=== PATIENT | male | born 1980 | race Caucasian/White ===

== ENCOUNTER 2023-01-04 15:11 | Inpatient (IN) | payer MEDICAID ==
[~2023-01-04] VITALS: Ht 177.8 cm; Wt 66.2 kg
[2023-01-04] MEDS ORDERED: IOHEXOL-350 100 ML VIAL IV ONE ×2 (15:53→15:54)
[2023-01-04] MEDS ORDERED: CT SWABBABLE VALVE TRANS SET 1 EA INFUS.SET MC ONE (15:54)
[2023-01-04] MEDS ORDERED: IV NS 0.9% 250 ML IV ONE ×2 (15:54)
[2023-01-04 16:06] LABS: HEMATOCRIT 31 % (39-51); HEMOGLOBIN 10.2 g/dL (13.5-17.5); MEAN CORPUSCULAR HEMOGLOBIN 27 PG (26.0-33.0); MEAN CORPUSCULAR HGB CONC 33 g/dl (31.0-36.0); MEAN CORPUSCULAR VOLUME 81 fL (80-96); NEUTROPHILS % (AUTO) 63.9 % (43.0-81.0); PLATELET COUNT (AUTO) 164 K/uL (150-450); RED BLOOD CELL COUNT(AUTO) 3.81 MIL/uL (4.5-6.0); RED CELL DISTRIBUTION WIDTH 16.2 % (11.5-15.0)
[2023-01-04 16:07] LABS: BASOPHILS % (AUTO) 0.4 % (0.0-2.0); EOSINOPHILS % (AUTO) 1.2 % (0.0-6.0); MONOCYTES % (AUTO) 10.5 % (2.0-12.0)
[2023-01-04 16:08] LABS: EOSINOPHILS # (AUTO) 0.1 K/uL (0.0-0.7); LYMPHOCYTES # (AUTO) 1.2 K/uL (0.8-4.8); MONOCYTES # (AUTO) 0.5 K/uL (0.1-1.30); NEUTROPHILS # (AUTO) 3.2 K/uL (1.8-8.9)
[2023-01-04 16:13] LABS: PARTIAL THROMBOPLASTIN TIME 33.3 SEC (24.3-34.3); PROTHROMBIN TIME 10.5 SECS (9.2-11.1)
[2023-01-04 16:42] LABS: ALANINE AMINOTRANSFERASE 26 U/L (12-78); ALBUMIN 3.2 g/dL (3.4-5.0); ALKALINE PHOSPHATASE 102 U/L (46-116); ASPARTATE AMINOTRANSFERASE 22 U/L (15-37); BILIRUBIN,DIRECT 0.1 mg/dL (0.0-0.2); BILIRUBIN,TOTAL 0.4 mg/dL (0.2-1.0); CALCIUM, SERUM 8.6 mg/dL (8.5-10.1); CARBON DIOXIDE 28 mmol/L (21-32); CHLORIDE 100 mmol/L (98-107); CREATININE 1.1 mg/dL (0.6-1.3); GLUCOSE 95 mg/dL (74-106); SODIUM SERUM 136 mmol/L (136-145); TOTAL PROTEIN, SERUM 7.1 g/dL (6.4-8.2); UREA NITROGEN, BLOOD 18 mg/dL (7-18)
[2023-01-04 16:46] LABS: ACETAMINOPHEN <10 ug/ml (10-30); ALCOHOL, BLOOD < 3 mg/dL (0-10); POTASSIUM 2.4 mmol/L (3.5-5.1); SALICYLATE < 2.3 mg/dL (2.8-20.0)
[2023-01-04] MEDS ORDERED: POTASSIUM CHLORIDE 10 MEQ/50 ML PREMIXED IVPB FOR PERIPHERAL LINE IV ONE (18:30)
[2023-01-04] MEDS ORDERED: POTASSIUM CHLORIDE 20 MEQ TAB.PRT.SR PO ONE ×2 (18:30→21:30)
[2023-01-04 19:44] LABS: APPEARANCE,URINE CLEAR (CLEAR); BILIRUBIN,URINE NEGATIVE (NEGATIVE); BLOOD, URINE NEGATIVE Ery/uL (NEGATIVE); COLOR,URINE YELLOW (YELLOW); KETONES,URINE NEGATIVE (NEGATIVE); LEUKOCYTE ESTERASE ,URINE NEGATIVE (NEGATIVE); NITRITE, URINE NEGATIVE (NEGATIVE); PROTEIN,URINE NEGATIVE (NEGATIVE); UGLUCOSE NEGATIVE (NEGATIVE); UROBILINOGEN,URINE 0.2 EU/dL (0.2)
[2023-01-04] MEDS ORDERED: SULFAMETH/TRIMETH 800/160 MG 1 UDTAB TABLET PO ONE (20:00)
[2023-01-04 20:03] LABS: BARBITURATE, URINE NEGATIVE (NEGATIVE); BENZODIAZEPINE, URINE NEGATIVE (NEGATIVE); COCCAINE, URINE NEGATIVE (NEGATIVE); OPIATE, URINE NEGATIVE (NEGATIVE); PHENCYCLIDINE SCREEN,URINE NEGATIVE (NEGATIVE)
[2023-01-04 20:08] LABS: AMPHETAMINE, URINE POSITIVE (NEGATIVE)
[2023-01-04 20:09] LABS: CANNABINOID, URINE POSITIVE (NEGATIVE)
[2023-01-04] MEDS ORDERED: SULFAMETH/TRIMETH 800/160 MG 1 UDTAB TABLET ONE (20:10)
[2023-01-04] MEDS ORDERED: AZIT250T13 PO (20:41)
[2023-01-04] MEDS ORDERED: DEXA4TAB PO (20:42)
[2023-01-04] MEDS ORDERED: FLUC200T8 PO (20:43)
[2023-01-04] MEDS ORDERED: LEVE100S PO (20:44)
[2023-01-04] MEDS ORDERED: LEVE500T20 PO (20:44)
[2023-01-04] MEDS ORDERED: SULF1TAB48 PO (20:46)
[2023-01-04] MEDS ORDERED: ZOLPIDEM TARTRATE 5 MG TABLET PO PRN (21:30)
[2023-01-04] MEDS ORDERED: MAGNESIUM HYDROXIDE 30 ML UDC PO PRN (21:30)
[2023-01-04] MEDS ORDERED: ONDANSETRON HCL/PF 4 MG/2 ML VIAL IVP PRN (21:30)
[2023-01-04] MEDS ORDERED: MAG HYDROX/AL HYDROX/SIMETH 30 ML UDC PO PRN (21:30)
[2023-01-04] MEDS ORDERED: Z GUARD REMEDY 4 OZ OINT TP PRN (21:30)
[2023-01-04 22:30] VITALS: BP 134/102; TEMP 100.6; O2SAT 96
[2023-01-04] MEDS: ACETAMINOPHEN 325 MG TABLET PO PRN (23:11)
[2023-01-05] VITALS: BP 136/102; TEMP 100.2; O2SAT 96
[2023-01-05] MEDS ORDERED: POTASSIUM CHLORIDE 20 MEQ TAB.PRT.SR PO ONE (00:20)
[2023-01-05 04:00] VITALS: BP 112/89; TEMP 99.2; O2SAT 96
[2023-01-05 05:00] VITALS: TEMP 98.5
[2023-01-05 07:08] LABS: BASOPHILS % (AUTO) 0.6 % (0.0-2.0); EOSINOPHILS # (AUTO) 0.1 K/uL (0.0-0.7); EOSINOPHILS % (AUTO) 1.4 % (0.0-6.0); HEMATOCRIT 31 % (39-51); HEMOGLOBIN 10.3 g/dL (13.5-17.5); LYMPHOCYTES # (AUTO) 1.5 K/uL (0.8-4.8); LYMPHOCYTES % (AUTO) 26.6 % (20.0-44.0); MEAN CORPUSCULAR HEMOGLOBIN 27 PG (26.0-33.0); MEAN CORPUSCULAR HGB CONC 33 g/dl (31.0-36.0); MEAN CORPUSCULAR VOLUME 81 fL (80-96); MONOCYTES # (AUTO) 0.7 K/uL (0.1-1.30); MONOCYTES % (AUTO) 13.1 % (2.0-12.0); NEUTROPHILS # (AUTO) 3.3 K/uL (1.8-8.9); NEUTROPHILS % (AUTO) 58.3 % (43.0-81.0); PLATELET COUNT (AUTO) 173 K/uL (150-450); RED BLOOD CELL COUNT(AUTO) 3.85 MIL/uL (4.5-6.0); RED CELL DISTRIBUTION WIDTH 16.2 % (11.5-15.0); WHITE BLOOD COUNT (AUTO) 5.7 K/uL (4.3-11.0)
[2023-01-05] MEDS: PANTOPRAZOLE 40 MG TABLET.DR PO SCH (07:35)
[2023-01-05 07:48] LABS: THYROID STIMULATING HORMONE 0.199 uIU/mL (0.358-3.74)
[2023-01-05 07:52] LABS: CALCIUM, SERUM 8.2 mg/dL (8.5-10.1); CREATININE 0.9 mg/dL (0.6-1.3); POTASSIUM 3.2 mmol/L (3.5-5.1)
[2023-01-05 08:00] VITALS: BP 151/99; TEMP 98.9; O2SAT 94
[2023-01-05 08:05] LABS: MAGNESIUM 1.9 mg/dL (1.8-2.4); PHOSPHORUS 2.6 mg/dL (2.5-4.9)
[2023-01-05] MEDS ORDERED: FLUC100T8 PO (08:38)
[2023-01-05] MEDS ORDERED: FLUC200T8 PO (08:38)
[2023-01-05] MEDS: dexAMETHasone 4 MG TABLET PO SCH ×2 (09:28→16:32)
[2023-01-05] MEDS: LEVETIRACETAM SOL (5 ML) 100 MG/ML UDC PO SCH ×2 (09:28→16:31)
[2023-01-05] MEDS: SULFAMETH/TRIMETH 800/160 MG 1 UDTAB TABLET PO SCH ×2 (09:28→21:38)
[2023-01-05] MEDS: ACETAMINOPHEN 325 MG TABLET PO PRN (11:43)
[2023-01-05] MEDS: POTASSIUM CHLORIDE 20 MEQ TAB.PRT.SR PO SCH ×2 (11:44→12:54)
[2023-01-05] MEDS: FLUCONAZOLE (100 MG) 100 MG TABLET PO SCH (11:44)
[2023-01-05] MEDS ORDERED: LORAZEPAM INJ 2 MG/ML VIAL IV ONE (13:00)
[2023-01-05 16:00] VITALS: BP 148/94; TEMP 98.8; O2SAT 99
[2023-01-05 20:00] VITALS: BP 154/111; TEMP 97.7; O2SAT 98
[2023-01-05] MEDS: VANCOMYCIN 1 GM in IV D5W 250 ML IV SCH (20:22)
[2023-01-05] MEDS: CEFEPIME 2 GM in IV D5W 100 ML IV SCH (21:38)
[2023-01-05] MEDS: LORAZEPAM INJ 2 MG/ML VIAL IM/IV PRN (23:22)
[2023-01-05] MEDS: METRONIDAZOLE 500MG/ NS 100ML 500 MG in PREMIX 1 EA IV SCH (23:33)
[2023-01-06] VITALS: BP 178/104; TEMP 99.1; O2SAT 100
[2023-01-06] MEDS: hydrALAZINE HCL IV 20 MG VIAL IV PRN (01:02)
[2023-01-06 04:00] VITALS: BP 152/109; TEMP 98.2; O2SAT 99
[2023-01-06] MEDS: VANCOMYCIN 1 GM in IV D5W 250 ML IV SCH ×3 (04:25→20:37)
[2023-01-06] MEDS: CEFEPIME 2 GM in IV D5W 100 ML IV SCH ×3 (05:16→21:28)
[2023-01-06] MEDS: METRONIDAZOLE 500MG/ NS 100ML 500 MG in PREMIX 1 EA IV SCH ×4 (06:22→23:56)
[2023-01-06] MEDS: PANTOPRAZOLE 40 MG TABLET.DR PO SCH (07:37)
[2023-01-06 07:46] LABS: CALCIUM, SERUM 9.1 mg/dL (8.5-10.1); CREATININE 0.8 mg/dL (0.6-1.3); POTASSIUM 3.7 mmol/L (3.5-5.1)
[2023-01-06] MEDS ORDERED: GADOTERATE MEGLUMINE 5 MMOL/10 ML VIAL IV ONE (08:29)
[2023-01-06 09:11] LABS: FERRITIN 277 ng/mL (8-388)
[2023-01-06] MEDS: FLUCONAZOLE (100 MG) 100 MG TABLET PO SCH (09:19)
[2023-01-06] MEDS: LEVETIRACETAM SOL (5 ML) 100 MG/ML UDC PO SCH ×2 (09:19→17:11)
[2023-01-06] MEDS: dexAMETHasone 4 MG TABLET PO SCH ×2 (09:20→17:11)
[2023-01-06] MEDS: SULFAMETH/TRIMETH 800/160 MG 1 UDTAB TABLET PO SCH (09:20)
[2023-01-06] MEDS ORDERED: LEVETIRACETAM (250 MG) 250 MG TABLET PO SCH (17:00)
[2023-01-06] MEDS: PROSOURCE / PROSTAT (PYXIS) 30 ML UDC PO SCH (17:11)
[2023-01-06 20:57] VITALS: BP 149/103; TEMP 98.9; O2SAT 98
[2023-01-06] MEDS: SULFAMETHOXAZOLE/TRIMETHOPRIM 20 ML in IV D5W 500 ML IV SCH (21:00)
[2023-01-06 22:08] LABS: HIV-1 p24 ANTIGEN NON REACTIVE (NONREACTIVE); HIV-1/2 ANTIBODY REACTIVE (NONREACTIVE)
[2023-01-06] MEDS ORDERED: SULFAMETHOXAZOLE/TRIMETHOPRIM 10 ML VIAL IV ONE (23:48)
[2023-01-07 00:34] VITALS: BP 125/87; TEMP 98; O2SAT 96
[2023-01-07] MEDS: SULFAMETHOXAZOLE/TRIMETHOPRIM 20 ML in IV D5W 500 ML IV SCH ×3 (00:38→20:52)
[2023-01-07] MEDS: VANCOMYCIN 1 GM in IV D5W 250 ML IV SCH (03:53)
[2023-01-07 04:31] VITALS: BP 141/93; TEMP 98; O2SAT 96
[2023-01-07 05:09] LABS: *BASOS 0 % (Not Estab.); *EOS 0 % (Not Estab.); *HCT 37.8 % (37.5-51.0); *HGB 12.2 g/dL (13.0-17.7); *IMMATURE GRANULOCYTES 0 % (Not Estab.); *LYMPHOCYTES 25 % (Not Estab.); *LYMPHS, ABSOLUTE 1.9 x10E3/uL (0.7-3.1); *MCH 26.6 pg (26.6-33.0); *MCHC 32.3 g/dL (31.5-35.7); *MCV 83 fL (79-97); *MONOCYTES 8 % (Not Estab.); *MONOS, ABSOLUTE 0.6 x10E3/uL (0.1-0.9); *NEUTROPHILS 67 % (Not Estab.); *NEUTROPHILS, ABSOLUTE 5.1 x10E3/uL (1.4-7.0); *PLT 243 x10E3/uL (150-450); *RBC 4.58 x10E6/uL (4.14-5.80); *RDW 15.3 % (11.6-15.4); *WBC 7.7 x10E3/uL (3.4-10.8)
[2023-01-07] MEDS: CEFEPIME 2 GM in IV D5W 100 ML IV SCH ×3 (05:19→21:46)
[2023-01-07 05:57] LABS: CALCIUM, SERUM 9.4 mg/dL (8.5-10.1); POTASSIUM 4.5 mmol/L (3.5-5.1)
[2023-01-07] MEDS: METRONIDAZOLE 500MG/ NS 100ML 500 MG in PREMIX 1 EA IV SCH ×3 (06:03→17:05)
[2023-01-07 07:30] VITALS: BP 142/98; TEMP 97.8; O2SAT 98
[2023-01-07] MEDS: PANTOPRAZOLE 40 MG TABLET.DR PO SCH (07:48)
[2023-01-07 08:07] LABS: CMV, IgG >10.00 U/mL (0.00-0.59)
[2023-01-07] MEDS: ASCORBIC ACID 500 MG TABLET PO SCH (09:02)
[2023-01-07] MEDS: MULTIVIT W/MINERALS 1 TAB TABLET PO SCH (09:02)
[2023-01-07] MEDS: ZINC SULFATE 220 MG CAPSULE PO SCH (09:02)
[2023-01-07] MEDS: dexAMETHasone 4 MG TABLET PO SCH ×2 (09:02→17:03)
[2023-01-07] MEDS: PROSOURCE / PROSTAT (PYXIS) 30 ML UDC PO SCH ×2 (09:03→17:03)
[2023-01-07] MEDS: LEVETIRACETAM (250 MG) 250 MG TABLET PO SCH ×2 (09:03→17:03)
[2023-01-07 09:07] LABS: *EBV AB VCA, IgM <36.0 U/mL (0.0-35.9)
[2023-01-07] MEDS: FLUCONAZOLE (100 MG) 100 MG TABLET PO SCH (09:32)
[2023-01-07 10:07] LABS: *% CD 4 POS. LYMPH 0.5 % (30.8-58.5); *% CD 8 POS. LYMPH 89.5 % (12.0-35.5); *ABSOLUTE CD 4 HELPER 10 /uL (359-1519); *ABSOLUTE CD 8 SUPPRESSOR 1701 /uL (109-897); *CD4/CD8 RATIO 0.01 (0.92-3.72)
[2023-01-07 14:07] LABS: HEPATITIS B CORE AB, TOTAL Negative (Negative); HEPATITIS B SURFACE AB Non Reactive (.)
[2023-01-07 15:00] VITALS: BP 149/97; TEMP 97.5; O2SAT 97
[2023-01-07 20:00] VITALS: BP 140/90; TEMP 98.4; O2SAT 98
[2023-01-07 21:06] LABS: *HIV-1 log10 RNA 4.911 (.)
[2023-01-08 00:46] VITALS: BP 141/102; TEMP 98; O2SAT 96
[2023-01-08] MEDS: METRONIDAZOLE 500MG/ NS 100ML 500 MG in PREMIX 1 EA IV SCH ×2 (01:24→06:26)
[2023-01-08 04:17] VITALS: BP 144/98; TEMP 97.8; O2SAT 96
[2023-01-08] MEDS: CEFEPIME 2 GM in IV D5W 100 ML IV SCH ×3 (04:27→21:34)
[2023-01-08 06:09] LABS: CALCIUM, SERUM 8.8 mg/dL (8.5-10.1); POTASSIUM 3.7 mmol/L (3.5-5.1)
[2023-01-08 06:16] LABS: MAGNESIUM 2.2 mg/dL (1.8-2.4); PHOSPHORUS 2.3 mg/dL (2.5-4.9)
[2023-01-08 06:27] LABS: THYROID STIMULATING HORMONE 0.154 uIU/mL (0.358-3.74); URIC ACID 3.7 mg/dL (2.6-7.2)
[2023-01-08] MEDS ORDERED: K PHOS NEUTRAL 250 MG TABLET PO ONE ×2 (07:30→17:30)
[2023-01-08 08:00] VITALS: BP 148/110; TEMP 97.9; O2SAT 98
[2023-01-08] MEDS: FLUCONAZOLE (100 MG) 100 MG TABLET PO SCH (08:32)
[2023-01-08] MEDS: dexAMETHasone 4 MG TABLET PO SCH ×2 (08:33→17:19)
[2023-01-08] MEDS: ZINC SULFATE 220 MG CAPSULE PO SCH (08:33)
[2023-01-08] MEDS: ASCORBIC ACID 500 MG TABLET PO SCH (08:33)
[2023-01-08] MEDS: MULTIVIT W/MINERALS 1 TAB TABLET PO SCH (08:33)
[2023-01-08] MEDS: PROSOURCE / PROSTAT (PYXIS) 30 ML UDC PO SCH ×2 (08:34→17:19)
[2023-01-08] MEDS: PANTOPRAZOLE 40 MG TABLET.DR PO SCH (08:34)
[2023-01-08] MEDS: LEVETIRACETAM (250 MG) 250 MG TABLET PO SCH ×2 (08:34→17:19)
[2023-01-08] MEDS: SULFAMETHOXAZOLE/TRIMETHOPRIM 20 ML in IV D5W 500 ML IV SCH ×2 (10:14→21:48)
[2023-01-08] MEDS: METRONIDAZOLE 500 MG TABLET PO SCH ×2 (12:46→17:19)
[2023-01-08 16:00] VITALS: BP 145/97; TEMP 97.9; O2SAT 98
[2023-01-08 19:00] VITALS: BP 142/91; TEMP 98.9; O2SAT 98
[2023-01-08 20:00] VITALS: BP 145/97; TEMP 97.6
[2023-01-09] MEDS: METRONIDAZOLE 500 MG TABLET PO SCH ×5 (00:44→23:43)
[2023-01-09 04:00] VITALS: BP 158/105; TEMP 98.7; O2SAT 98
[2023-01-09] MEDS: CEFEPIME 2 GM in IV D5W 100 ML IV SCH ×3 (05:38→20:41)
[2023-01-09 05:52] LABS: BASOPHILS % (AUTO) 0.1 % (0.0-2.0); HEMATOCRIT 34 % (39-51); LYMPHOCYTES # (AUTO) 1.2 K/uL (0.8-4.8); LYMPHOCYTES % (AUTO) 11.9 % (20.0-44.0); MEAN CORPUSCULAR HEMOGLOBIN 27 PG (26.0-33.0); MEAN CORPUSCULAR HGB CONC 32 g/dl (31.0-36.0); MEAN CORPUSCULAR VOLUME 82 fL (80-96); MONOCYTES # (AUTO) 0.2 K/uL (0.1-1.30); MONOCYTES % (AUTO) 2.4 % (2.0-12.0); NEUTROPHILS # (AUTO) 8.5 K/uL (1.8-8.9); NEUTROPHILS % (AUTO) 85.6 % (43.0-81.0); PLATELET COUNT (AUTO) 244 K/uL (150-450); RED BLOOD CELL COUNT(AUTO) 4.15 MIL/uL (4.5-6.0); RED CELL DISTRIBUTION WIDTH 16.1 % (11.5-15.0); WHITE BLOOD COUNT (AUTO) 9.9 K/uL (4.3-11.0)
[2023-01-09 06:35] VITALS: BP 165/115
[2023-01-09 06:44] LABS: CREATININE 0.9 mg/dL (0.6-1.3); POTASSIUM 3.9 mmol/L (3.5-5.1)
[2023-01-09] MEDS: hydrALAZINE HCL IV 20 MG VIAL IV PRN (06:47)
[2023-01-09 08:00] VITALS: BP 163/100; TEMP 98.1; O2SAT 98
[2023-01-09] MEDS: PANTOPRAZOLE 40 MG TABLET.DR PO SCH (08:31)
[2023-01-09] MEDS: FLUCONAZOLE (100 MG) 100 MG TABLET PO SCH (08:35)
[2023-01-09] MEDS: LEVETIRACETAM (250 MG) 250 MG TABLET PO SCH ×2 (08:36→16:58)
[2023-01-09] MEDS: ZINC SULFATE 220 MG CAPSULE PO SCH (08:36)
[2023-01-09] MEDS: MULTIVIT W/MINERALS 1 TAB TABLET PO SCH (08:37)
[2023-01-09] MEDS: ASCORBIC ACID 500 MG TABLET PO SCH (08:38)
[2023-01-09] MEDS: dexAMETHasone 4 MG TABLET PO SCH ×2 (08:38→16:58)
[2023-01-09] MEDS: PROSOURCE / PROSTAT (PYXIS) 30 ML UDC PO SCH ×2 (08:41→16:58)
[2023-01-09] MEDS: SULFAMETHOXAZOLE/TRIMETHOPRIM 20 ML in IV D5W 500 ML IV SCH ×2 (08:47→21:31)
[2023-01-09 12:00] VITALS: BP 152/98; TEMP 98.3; O2SAT 98
[2023-01-09] MEDS ORDERED: IOHEXOL-300 100 ML VIAL IV ONE (13:40)
[2023-01-09] MEDS ORDERED: CT SWABBABLE VALVE TRANS SET 1 EA INFUS.SET MC ONE (13:41)
[2023-01-09] MEDS ORDERED: IV NS 0.9% 250 ML IV ONE (13:41)
[2023-01-09] MEDS ORDERED: MAGNESIUM HYDROXIDE 30 ML UDC PO PRN (18:00)
[2023-01-09 20:00] VITALS: BP 150/108; TEMP 97.4; O2SAT 97
[2023-01-10] MEDS: CEFEPIME 2 GM in IV D5W 100 ML IV SCH ×3 (04:06→20:31)
[2023-01-10] MEDS: METRONIDAZOLE 500 MG TABLET PO SCH ×3 (05:19→17:28)
[2023-01-10 06:05] LABS: CALCIUM, SERUM 8.7 mg/dL (8.5-10.1); CREATININE 0.9 mg/dL (0.6-1.3); POTASSIUM 4.1 mmol/L (3.5-5.1)
[2023-01-10 07:00] VITALS: BP 151/105; TEMP 97.6; O2SAT 100
[2023-01-10] MEDS: PANTOPRAZOLE 40 MG TABLET.DR PO SCH (07:59)
[2023-01-10] MEDS: POLYETHYLENE GLYCOL 3350 17 GM POWD.PACK PO SCH (08:54)
[2023-01-10] MEDS: dexAMETHasone 4 MG TABLET PO SCH ×2 (08:55→17:15)
[2023-01-10] MEDS: ZINC SULFATE 220 MG CAPSULE PO SCH (08:55)
[2023-01-10] MEDS: ASCORBIC ACID 500 MG TABLET PO SCH (08:55)
[2023-01-10] MEDS: FLUCONAZOLE (100 MG) 100 MG TABLET PO SCH (08:55)
[2023-01-10] MEDS: PROSOURCE / PROSTAT (PYXIS) 30 ML UDC PO SCH ×2 (08:56→17:17)
[2023-01-10] MEDS: SULFAMETHOXAZOLE/TRIMETHOPRIM 20 ML in IV D5W 500 ML IV SCH ×2 (08:56→21:17)
[2023-01-10] MEDS: LEVETIRACETAM (250 MG) 250 MG TABLET PO SCH ×2 (08:56→17:15)
[2023-01-10] MEDS: MULTIVIT W/MINERALS 1 TAB TABLET PO SCH (08:56)
[2023-01-10 16:04] VITALS: BP 149/103; TEMP 97.8; O2SAT 98
[2023-01-10 18:15] LABS: CSF APPEARANCE CLEAR (CLEAR); CSF COLOR COLORLESS (COLORLESS); CSF GLUCOSE 71 mg/dL (40-70); CSF PROTEIN 72.21 mg/dL (15-45); CSF VOLUME 6.7 mL; CSF WHITE BLOOD CELL COUNT 15 /cumm (0-5)
[2023-01-10 18:31] LABS: CSF WHITE BLOOD CELL COUNT 12 /cumm (0-5)
[2023-01-10 20:00] VITALS: BP 158/94; TEMP 97.5; O2SAT 100
[2023-01-11] MEDS: METRONIDAZOLE 500 MG TABLET PO SCH ×4 (00:09→18:08)
[2023-01-11] MEDS: CEFEPIME 2 GM in IV D5W 100 ML IV SCH ×2 (04:12→17:31)
[2023-01-11 08:00] VITALS: BP 150/91; TEMP 98.6; O2SAT 98
[2023-01-11] MEDS: POLYETHYLENE GLYCOL 3350 17 GM POWD.PACK PO SCH (09:00)
[2023-01-11 09:15] LABS: BASOPHILS % (AUTO) 0.3 % (0.0-2.0); HEMATOCRIT 35 % (39-51); HEMOGLOBIN 11.2 g/dL (13.5-17.5); LYMPHOCYTES # (AUTO) 1.5 K/uL (0.8-4.8); LYMPHOCYTES % (AUTO) 12.5 % (20.0-44.0); MEAN CORPUSCULAR HEMOGLOBIN 26 PG (26.0-33.0); MEAN CORPUSCULAR HGB CONC 32 g/dl (31.0-36.0); MEAN CORPUSCULAR VOLUME 82 fL (80-96); MONOCYTES # (AUTO) 0.4 K/uL (0.1-1.30); MONOCYTES % (AUTO) 3.4 % (2.0-12.0); NEUTROPHILS # (AUTO) 10.2 K/uL (1.8-8.9); NEUTROPHILS % (AUTO) 83.8 % (43.0-81.0); PLATELET COUNT (AUTO) 350 K/uL (150-450); RED BLOOD CELL COUNT(AUTO) 4.26 MIL/uL (4.5-6.0); RED CELL DISTRIBUTION WIDTH 16.4 % (11.5-15.0); WHITE BLOOD COUNT (AUTO) 12.2 K/uL (4.3-11.0)
[2023-01-11 09:57] LABS: BILIRUBIN,DIRECT 0.1 mg/dL (0.0-0.2); BILIRUBIN,TOTAL 0.1 mg/dL (0.2-1.0); CALCIUM, SERUM 8.7 mg/dL (8.5-10.1); TOTAL PROTEIN, SERUM 6.7 g/dL (6.4-8.2)
[2023-01-11 09:58] LABS: BAND % (MANUAL) 2 % (0.0-5.0); LYMPHOCYTES % (MANUAL) 11 % (16-48); METAMYELOCYTES % 1 % (0-0); MONOCYTES % (MANUAL) 2 % (0-11.0); MYELOCYTES % 4 % (0-0); NEUTROPHILS % (MANUAL) 80 (42-76); PLATELET ESTIMATE ADEQUATE
[2023-01-11] MEDS ORDERED: D5W IV SCH (10:00)
[2023-01-11] MEDS ORDERED: AMPHOTERICIN B LIPID COMPLEX IV SCH (10:00)
[2023-01-11] MEDS: LEVETIRACETAM (250 MG) 250 MG TABLET PO SCH ×2 (10:26→18:09)
[2023-01-11] MEDS: dexAMETHasone 4 MG TABLET PO SCH ×2 (10:26→18:09)
[2023-01-11] MEDS: ASCORBIC ACID 500 MG TABLET PO SCH (10:26)
[2023-01-11] MEDS: MULTIVIT W/MINERALS 1 TAB TABLET PO SCH (10:26)
[2023-01-11] MEDS: PANTOPRAZOLE 40 MG TABLET.DR PO SCH (10:27)
[2023-01-11] MEDS: ZINC SULFATE 220 MG CAPSULE PO SCH (10:28)
[2023-01-11] MEDS: PROSOURCE / PROSTAT (PYXIS) 30 ML UDC PO SCH ×2 (10:31→18:08)
[2023-01-11] MEDS: SULFAMETHOXAZOLE/TRIMETHOPRIM 20 ML in IV D5W 500 ML IV SCH ×2 (10:44→21:17)
[2023-01-11] MEDS: FLUCYTOSINE 250 MG CAPSULE PO SCH ×3 (12:29→20:30)
[2023-01-11] MEDS: ACETAMINOPHEN 325 MG TABLET PO PRN (14:16)
[2023-01-11 16:00] VITALS: BP 146/109; TEMP 98.4; O2SAT 98
[2023-01-11 17:06] LABS: CMV, IgM <30.0 AU/mL (0.0-29.9); RAPID PLASMA REAGIN QUAL. Non Reactive (Non Reactive)
[2023-01-11 21:19] VITALS: BP 154/118; TEMP 97.9; O2SAT 97
[2023-01-11 22:17] VITALS: BP 160/107
[2023-01-12] MEDS: METRONIDAZOLE 500 MG TABLET PO SCH ×5 (00:04→23:13)
[2023-01-12] MEDS: CEFEPIME 2 GM in IV D5W 100 ML IV SCH ×3 (01:15→16:18)
[2023-01-12 07:13] LABS: BASOPHILS % (AUTO) 0.1 % (0.0-2.0); HEMATOCRIT 35 % (39-51); HEMOGLOBIN 11.6 g/dL (13.5-17.5); LYMPHOCYTES # (AUTO) 1.7 K/uL (0.8-4.8); LYMPHOCYTES % (AUTO) 11.1 % (20.0-44.0); MEAN CORPUSCULAR HEMOGLOBIN 27 PG (26.0-33.0); MEAN CORPUSCULAR HGB CONC 33 g/dl (31.0-36.0); MEAN CORPUSCULAR VOLUME 81 fL (80-96); MONOCYTES # (AUTO) 0.7 K/uL (0.1-1.30); MONOCYTES % (AUTO) 4.8 % (2.0-12.0); NEUTROPHILS # (AUTO) 13.1 K/uL (1.8-8.9); PLATELET COUNT (AUTO) 391 K/uL (150-450); RED BLOOD CELL COUNT(AUTO) 4.34 MIL/uL (4.5-6.0); RED CELL DISTRIBUTION WIDTH 16.7 % (11.5-15.0); WHITE BLOOD COUNT (AUTO) 15.5 K/uL (4.3-11.0)
[2023-01-12 07:24] LABS: CALCIUM, SERUM 8.7 mg/dL (8.5-10.1); CREATININE 0.9 mg/dL (0.6-1.3); POTASSIUM 4.4 mmol/L (3.5-5.1)
[2023-01-12 08:00] VITALS: BP 152/114; TEMP 96.6; O2SAT 98
[2023-01-12] MEDS: PANTOPRAZOLE 40 MG TABLET.DR PO SCH (08:21)
[2023-01-12] MEDS: ZINC SULFATE 220 MG CAPSULE PO SCH (08:35)
[2023-01-12] MEDS: MULTIVIT W/MINERALS 1 TAB TABLET PO SCH (08:35)
[2023-01-12] MEDS: dexAMETHasone 4 MG TABLET PO SCH ×2 (08:35→16:18)
[2023-01-12] MEDS: LEVETIRACETAM (250 MG) 250 MG TABLET PO SCH ×2 (08:35→16:18)
[2023-01-12] MEDS: ASCORBIC ACID 500 MG TABLET PO SCH (08:36)
[2023-01-12] MEDS: FLUCYTOSINE 250 MG CAPSULE PO SCH ×4 (08:43→21:15)
[2023-01-12] MEDS: hydrALAZINE HCL IV 20 MG VIAL IV PRN (09:01)
[2023-01-12] MEDS: PROSOURCE / PROSTAT (PYXIS) 30 ML UDC PO SCH ×2 (09:02→16:19)
[2023-01-12] MEDS: POLYETHYLENE GLYCOL 3350 17 GM POWD.PACK PO SCH (09:02)
[2023-01-12] MEDS: SULFAMETHOXAZOLE/TRIMETHOPRIM 20 ML in IV D5W 500 ML IV SCH ×2 (09:10→23:11)
[2023-01-12] MEDS ORDERED: D5W IV SCH (11:00)
[2023-01-12] MEDS ORDERED: AMPHOTERICIN B LIPID COMPLEX IV SCH (11:00)
[2023-01-12 16:00] VITALS: BP 153/109; TEMP 98.1; O2SAT 98
[2023-01-12 20:00] VITALS: BP 145/71; TEMP 99; O2SAT 99
[2023-01-12] MEDS ORDERED: D5W IV ONE (21:00)
[2023-01-12] MEDS ORDERED: AMPHOTERICIN B LIPID COMPLEX IV ONE (21:00)
[2023-01-13] MEDS: CEFEPIME 2 GM in IV D5W 100 ML IV SCH ×3 (01:37→16:49)
[2023-01-13] MEDS: METRONIDAZOLE 500 MG TABLET PO SCH ×3 (06:42→18:24)
[2023-01-13] MEDS: PANTOPRAZOLE 40 MG TABLET.DR PO SCH (06:42)
[2023-01-13] MEDS: ACETAMINOPHEN 325 MG TABLET PO PRN ×2 (07:56→21:31)
[2023-01-13 08:00] VITALS: BP 122/90; TEMP 98.6; O2SAT 94
[2023-01-13 08:06] LABS: BASOPHILS % (AUTO) 0.1 % (0.0-2.0); HEMATOCRIT 37 % (39-51); HEMOGLOBIN 11.7 g/dL (13.5-17.5); LYMPHOCYTES % (AUTO) 11.5 % (20.0-44.0); MEAN CORPUSCULAR HEMOGLOBIN 26 PG (26.0-33.0); MEAN CORPUSCULAR HGB CONC 32 g/dl (31.0-36.0); MEAN CORPUSCULAR VOLUME 82 fL (80-96); MONOCYTES # (AUTO) 0.9 K/uL (0.1-1.30); MONOCYTES % (AUTO) 5.1 % (2.0-12.0); NEUTROPHILS # (AUTO) 14.7 K/uL (1.8-8.9); NEUTROPHILS % (AUTO) 83.3 % (43.0-81.0); PLATELET COUNT (AUTO) 413 K/uL (150-450); RED BLOOD CELL COUNT(AUTO) 4.47 MIL/uL (4.5-6.0); WHITE BLOOD COUNT (AUTO) 17.6 K/uL (4.3-11.0)
[2023-01-13 08:21] LABS: CALCIUM, SERUM 8.5 mg/dL (8.5-10.1); MAGNESIUM 2.1 mg/dL (1.8-2.4); PHOSPHORUS 3.4 mg/dL (2.5-4.9); POTASSIUM 4.4 mmol/L (3.5-5.1)
[2023-01-13] MEDS: LEVETIRACETAM (250 MG) 250 MG TABLET PO SCH ×2 (09:30→16:46)
[2023-01-13] MEDS: dexAMETHasone 4 MG TABLET PO SCH ×2 (09:30→16:47)
[2023-01-13] MEDS: MULTIVIT W/MINERALS 1 TAB TABLET PO SCH (09:30)
[2023-01-13] MEDS: ZINC SULFATE 220 MG CAPSULE PO SCH (09:30)
[2023-01-13] MEDS: ASCORBIC ACID 500 MG TABLET PO SCH (09:30)
[2023-01-13] MEDS: SULFAMETHOXAZOLE/TRIMETHOPRIM 20 ML in IV D5W 500 ML IV SCH ×2 (09:32→21:31)
[2023-01-13] MEDS: PROSOURCE / PROSTAT (PYXIS) 30 ML UDC PO SCH ×2 (09:32→16:46)
[2023-01-13] MEDS: POLYETHYLENE GLYCOL 3350 17 GM POWD.PACK PO SCH (09:32)
[2023-01-13] MEDS: FLUCYTOSINE 250 MG CAPSULE PO SCH ×4 (09:42→23:00)
[2023-01-13] MEDS: hydrALAZINE HCL IV 20 MG VIAL IV PRN (09:42)
[2023-01-13] MEDS ORDERED: D5W IV SCH ×5 (12:00)
[2023-01-13] MEDS ORDERED: AMPHOTERICIN B LIPID COMPLEX IV SCH ×5 (12:00)
[2023-01-13 14:07] LABS: *HCV QUANTITATION HCV Not Detected IU/mL (.)
[2023-01-13 20:00] VITALS: BP 154/100; TEMP 98.1; O2SAT 98
[2023-01-14] MEDS: METRONIDAZOLE 500 MG TABLET PO SCH ×2 (00:53→05:58)
[2023-01-14] MEDS: CEFEPIME 2 GM in IV D5W 100 ML IV SCH ×2 (01:20→08:54)
[2023-01-14 04:23] LABS: APPEARANCE,URINE CLEAR (CLEAR); BILIRUBIN,URINE NEGATIVE (NEGATIVE); BLOOD, URINE NEGATIVE Ery/uL (NEGATIVE); COLOR,URINE YELLOW (YELLOW); KETONES,URINE NEGATIVE (NEGATIVE); LEUKOCYTE ESTERASE ,URINE NEGATIVE (NEGATIVE); NITRITE, URINE NEGATIVE (NEGATIVE); PROTEIN,URINE TRACE mg/dl (NEGATIVE); UGLUCOSE NEGATIVE (NEGATIVE); UROBILINOGEN,URINE 0.2 EU/dL (0.2)
[2023-01-14 05:54] LABS: BASOPHILS % (AUTO) 0.1 % (0.0-2.0); HEMATOCRIT 35 % (39-51); HEMOGLOBIN 11.5 g/dL (13.5-17.5); LYMPHOCYTES # (AUTO) 2.5 K/uL (0.8-4.8); LYMPHOCYTES % (AUTO) 12.7 % (20.0-44.0); MEAN CORPUSCULAR HEMOGLOBIN 27 PG (26.0-33.0); MEAN CORPUSCULAR HGB CONC 33 g/dl (31.0-36.0); MEAN CORPUSCULAR VOLUME 82 fL (80-96); MONOCYTES # (AUTO) 1.5 K/uL (0.1-1.30); MONOCYTES % (AUTO) 7.6 % (2.0-12.0); NEUTROPHILS # (AUTO) 15.4 K/uL (1.8-8.9); NEUTROPHILS % (AUTO) 79.6 % (43.0-81.0); PLATELET COUNT (AUTO) 415 K/uL (150-450); RED BLOOD CELL COUNT(AUTO) 4.25 MIL/uL (4.5-6.0); RED CELL DISTRIBUTION WIDTH 17.2 % (11.5-15.0); WHITE BLOOD COUNT (AUTO) 19.4 K/uL (4.3-11.0)
[2023-01-14 06:05] LABS: CALCIUM, SERUM 8.3 mg/dL (8.5-10.1); CREATININE 0.8 mg/dL (0.6-1.3); MAGNESIUM 2.1 mg/dL (1.8-2.4); PHOSPHORUS 3.6 mg/dL (2.5-4.9); POTASSIUM 3.9 mmol/L (3.5-5.1)
[2023-01-14] MEDS: PANTOPRAZOLE 40 MG TABLET.DR PO SCH (07:44)
[2023-01-14 08:25] VITALS: BP 161/116; TEMP 97.5; O2SAT 99
[2023-01-14] MEDS: dexAMETHasone 4 MG TABLET PO SCH (08:53)
[2023-01-14] MEDS: LEVETIRACETAM (250 MG) 250 MG TABLET PO SCH ×2 (08:54→16:12)
[2023-01-14] MEDS: MULTIVIT W/MINERALS 1 TAB TABLET PO SCH (08:54)
[2023-01-14] MEDS: FLUCYTOSINE 250 MG CAPSULE PO SCH ×4 (08:54→21:11)
[2023-01-14] MEDS: ZINC SULFATE 220 MG CAPSULE PO SCH (08:54)
[2023-01-14] MEDS: ASCORBIC ACID 500 MG TABLET PO SCH (08:54)
[2023-01-14] MEDS: POLYETHYLENE GLYCOL 3350 17 GM POWD.PACK PO SCH (08:54)
[2023-01-14] MEDS: PROSOURCE / PROSTAT (PYXIS) 30 ML UDC PO SCH ×2 (08:54→16:12)
[2023-01-14] MEDS: TRAMADOL HCL 50 MG TABLET PO PRN (08:55)
[2023-01-14] MEDS ORDERED: MEROPENEM 1 G in IV NS 0.9% 100 ML IV SCH ×12 (09:30→13:30)
[2023-01-14] MEDS ORDERED: MEROPENEM 2 G in IV NS 0.9% 100 ML IV SCH (09:30)
[2023-01-14] MEDS: SULFAMETHOXAZOLE/TRIMETHOPRIM 20 ML in IV D5W 500 ML IV SCH ×2 (09:37→22:30)
[2023-01-14] MEDS ORDERED: MEROPENEM 1 G in IV NS 0.9% 100 ML IV ONE ×2 (10:30→11:00)
[2023-01-14] MEDS ORDERED: CT SWABBABLE VALVE TRANS SET 1 EA INFUS.SET MC ONE (12:46)
[2023-01-14] MEDS ORDERED: IOHEXOL-350 100 ML VIAL IV ONE (12:46)
[2023-01-14] MEDS ORDERED: IV NS 0.9% 250 ML IV ONE (12:47)
[2023-01-14] MEDS: MEROPENEM 1 G in IV NS 0.9% 100 ML IV SCH ×4 (13:00→21:42)
[2023-01-14] MEDS: dexaMETHasone SOD PHOSPHATE 10 MG/ML VIAL IV SCH ×2 (13:48→17:09)
[2023-01-14] MEDS: AMPHOTERICIN B LIPOSOME IV SCH (14:24)
[2023-01-14] MEDS: D5W IV SCH (14:24)
[2023-01-14 16:07] LABS: *CRYPTOCOCCUS AG, CSF Negative (Negative)
[2023-01-14] MEDS: SERTRALINE HCL 50 MG TABLET PO SCH (16:12)
[2023-01-14] MEDS: HYDROCODONE/APAP 5/325MG TABLET PO PRN ×2 (16:22→21:30)
[2023-01-14 16:53] VITALS: BP 159/107; TEMP 97.9; O2SAT 99
[2023-01-14 20:00] VITALS: BP 156/111; TEMP 97.3
[2023-01-15] MEDS: MEROPENEM 1 G in IV NS 0.9% 100 ML IV SCH ×3 (04:32→22:15)
[2023-01-15] MEDS: HYDROCODONE/APAP 5/325MG TABLET PO PRN ×3 (05:12→17:57)
[2023-01-15] MEDS: hydrALAZINE HCL IV 20 MG VIAL IV PRN (05:12)
[2023-01-15 07:23] LABS: BASOPHILS # (AUTO) 0.1 K/uL (0.0-0.2); BASOPHILS % (AUTO) 0.3 % (0.0-2.0); HEMATOCRIT 34 % (39-51); LYMPHOCYTES % (AUTO) 10.6 % (20.0-44.0); MEAN CORPUSCULAR HEMOGLOBIN 26 PG (26.0-33.0); MEAN CORPUSCULAR HGB CONC 32 g/dl (31.0-36.0); MEAN CORPUSCULAR VOLUME 82 fL (80-96); MONOCYTES # (AUTO) 1.6 K/uL (0.1-1.30); MONOCYTES % (AUTO) 8.3 % (2.0-12.0); NEUTROPHILS # (AUTO) 15.5 K/uL (1.8-8.9); NEUTROPHILS % (AUTO) 80.8 % (43.0-81.0); PLATELET COUNT (AUTO) 377 K/uL (150-450); RED CELL DISTRIBUTION WIDTH 17.3 % (11.5-15.0); WHITE BLOOD COUNT (AUTO) 19.1 K/uL (4.3-11.0)
[2023-01-15 07:28] LABS: CALCIUM, SERUM 8.4 mg/dL (8.5-10.1); CREATININE 0.8 mg/dL (0.6-1.3); MAGNESIUM 2.2 mg/dL (1.8-2.4); PHOSPHORUS 3.4 mg/dL (2.5-4.9)
[2023-01-15] MEDS: PANTOPRAZOLE 40 MG TABLET.DR PO SCH (07:37)
[2023-01-15 08:00] VITALS: BP 167/104; TEMP 98.1; O2SAT 98
[2023-01-15] MEDS ORDERED: FLUCYTOSINE 250 MG CAPSULE PO SCH (09:00)
[2023-01-15] MEDS: SULFAMETHOXAZOLE/TRIMETHOPRIM 20 ML in IV D5W 500 ML IV SCH ×2 (09:03→20:00)
[2023-01-15] MEDS: PROSOURCE / PROSTAT (PYXIS) 30 ML UDC PO SCH ×2 (10:17→17:05)
[2023-01-15] MEDS: MULTIVIT W/MINERALS 1 TAB TABLET PO SCH (10:17)
[2023-01-15] MEDS: LEVETIRACETAM (250 MG) 250 MG TABLET PO SCH ×2 (10:17→17:05)
[2023-01-15] MEDS: ZINC SULFATE 220 MG CAPSULE PO SCH (10:18)
[2023-01-15] MEDS: ASCORBIC ACID 500 MG TABLET PO SCH (10:18)
[2023-01-15] MEDS: dexaMETHasone SOD PHOSPHATE 10 MG/ML VIAL IV SCH ×3 (10:18→17:05)
[2023-01-15] MEDS: FLUCYTOSINE 250 MG CAPSULE PO SCH ×4 (10:19→20:08)
[2023-01-15] MEDS: POLYETHYLENE GLYCOL 3350 17 GM POWD.PACK PO SCH (10:21)
[2023-01-15] MEDS: TRAMADOL HCL 50 MG TABLET PO PRN (13:34)
[2023-01-15] MEDS: ACETAMINOPHEN 325 MG TABLET PO PRN (13:34)
[2023-01-15] MEDS: D5W IV SCH (14:19)
[2023-01-15] MEDS: AMPHOTERICIN B LIPOSOME IV SCH (14:19)
[2023-01-15 16:00] VITALS: BP 144/103; TEMP 98.5; O2SAT 99
[2023-01-15] MEDS: SERTRALINE HCL 50 MG TABLET PO SCH (17:05)
[2023-01-15 20:00] VITALS: BP 157/104; TEMP 98.2; O2SAT 98
[2023-01-16] MEDS: MEROPENEM 1 G in IV NS 0.9% 100 ML IV SCH ×3 (05:08→21:57)
[2023-01-16 06:57] LABS: ALBUMIN 2.7 g/dL (3.4-5.0); BILIRUBIN,TOTAL 0.2 mg/dL (0.2-1.0); CALCIUM, SERUM 8.4 mg/dL (8.5-10.1); POTASSIUM 3.7 mmol/L (3.5-5.1)
[2023-01-16] MEDS: PANTOPRAZOLE 40 MG TABLET.DR PO SCH (07:45)
[2023-01-16 08:00] VITALS: BP 166/98; TEMP 97.8; O2SAT 99
[2023-01-16] MEDS: SULFAMETHOXAZOLE/TRIMETHOPRIM 20 ML in IV D5W 500 ML IV SCH ×2 (08:12→19:22)
[2023-01-16] MEDS: LORAZEPAM INJ 2 MG/ML VIAL IM/IV PRN (09:20)
[2023-01-16] MEDS: ASCORBIC ACID 500 MG TABLET PO SCH (10:52)
[2023-01-16] MEDS: FLUCYTOSINE 250 MG CAPSULE PO SCH ×4 (10:52→21:12)
[2023-01-16] MEDS: dexaMETHasone SOD PHOSPHATE 10 MG/ML VIAL IV SCH ×3 (10:52→17:36)
[2023-01-16] MEDS: ZINC SULFATE 220 MG CAPSULE PO SCH (10:52)
[2023-01-16] MEDS: PROSOURCE / PROSTAT (PYXIS) 30 ML UDC PO SCH ×2 (10:53→17:36)
[2023-01-16] MEDS: MULTIVIT W/MINERALS 1 TAB TABLET PO SCH (10:53)
[2023-01-16] MEDS: LEVETIRACETAM (250 MG) 250 MG TABLET PO SCH ×2 (10:53→17:36)
[2023-01-16] MEDS: POLYETHYLENE GLYCOL 3350 17 GM POWD.PACK PO SCH (10:53)
[2023-01-16 11:32] LABS: BASOPHILS % (AUTO) 0.1 % (0.0-2.0); EOSINOPHILS % (AUTO) 0.1 % (0.0-6.0); HEMATOCRIT 35 % (39-51); HEMOGLOBIN 11.3 g/dL (13.5-17.5); LYMPHOCYTES # (AUTO) 2.2 K/uL (0.8-4.8); LYMPHOCYTES % (AUTO) 10.7 % (20.0-44.0); MEAN CORPUSCULAR HEMOGLOBIN 27 PG (26.0-33.0); MEAN CORPUSCULAR HGB CONC 33 g/dl (31.0-36.0); MEAN CORPUSCULAR VOLUME 83 fL (80-96); MONOCYTES # (AUTO) 1.9 K/uL (0.1-1.30); MONOCYTES % (AUTO) 9.6 % (2.0-12.0); NEUTROPHILS % (AUTO) 79.5 % (43.0-81.0); PLATELET COUNT (AUTO) 360 K/uL (150-450); RED BLOOD CELL COUNT(AUTO) 4.21 MIL/uL (4.5-6.0); RED CELL DISTRIBUTION WIDTH 18.4 % (11.5-15.0); WHITE BLOOD COUNT (AUTO) 20.2 K/uL (4.3-11.0)
[2023-01-16] MEDS ORDERED: GADOTERATE MEGLUMINE 10 MMOL/20 ML VIAL IV ONE (11:33)
[2023-01-16] MEDS: D5W IV SCH (13:46)
[2023-01-16] MEDS: AMPHOTERICIN B LIPOSOME IV SCH (13:46)
[2023-01-16 16:48] VITALS: BP 167/98; TEMP 98; O2SAT 100
[2023-01-16] MEDS: SERTRALINE HCL 50 MG TABLET PO SCH (17:36)
[2023-01-16 19:00] VITALS: BP 153/106; TEMP 98.4; O2SAT 96
[2023-01-17] MEDS: HYDROCODONE/APAP 5/325MG TABLET PO PRN (00:53)
[2023-01-17] MEDS: MEROPENEM 1 G in IV NS 0.9% 100 ML IV SCH ×3 (04:27→13:32)
[2023-01-17 06:19] LABS: BASOPHILS % (AUTO) 0.2 % (0.0-2.0); EOSINOPHILS % (AUTO) 0.1 % (0.0-6.0); HEMATOCRIT 32 % (39-51); HEMOGLOBIN 10.5 g/dL (13.5-17.5); LYMPHOCYTES # (AUTO) 1.6 K/uL (0.8-4.8); LYMPHOCYTES % (AUTO) 12.2 % (20.0-44.0); MEAN CORPUSCULAR HEMOGLOBIN 27 PG (26.0-33.0); MEAN CORPUSCULAR HGB CONC 33 g/dl (31.0-36.0); MEAN CORPUSCULAR VOLUME 82 fL (80-96); MONOCYTES # (AUTO) 1.2 K/uL (0.1-1.30); MONOCYTES % (AUTO) 9.1 % (2.0-12.0); NEUTROPHILS # (AUTO) 10.3 K/uL (1.8-8.9); NEUTROPHILS % (AUTO) 78.4 % (43.0-81.0); PLATELET COUNT (AUTO) 328 K/uL (150-450); RED BLOOD CELL COUNT(AUTO) 3.93 MIL/uL (4.5-6.0); RED CELL DISTRIBUTION WIDTH 18.1 % (11.5-15.0); WHITE BLOOD COUNT (AUTO) 13.1 K/uL (4.3-11.0)
[2023-01-17 06:31] LABS: ALBUMIN 2.6 g/dL (3.4-5.0); BILIRUBIN,TOTAL 0.2 mg/dL (0.2-1.0); CALCIUM, SERUM 8.4 mg/dL (8.5-10.1); CREATININE 0.9 mg/dL (0.6-1.3); POTASSIUM 3.4 mmol/L (3.5-5.1); TOTAL PROTEIN, SERUM 5.7 g/dL (6.4-8.2)
[2023-01-17 08:00] VITALS: BP 161/108; TEMP 98.2; O2SAT 97
[2023-01-17] MEDS ORDERED: POTASSIUM CHLORIDE 20 MEQ TAB.PRT.SR PO ONE (08:00)
[2023-01-17] MEDS: PANTOPRAZOLE 40 MG TABLET.DR PO SCH (08:25)
[2023-01-17] MEDS: SULFAMETHOXAZOLE/TRIMETHOPRIM 20 ML in IV D5W 500 ML IV SCH ×2 (08:42→19:42)
[2023-01-17] MEDS: ZINC SULFATE 220 MG CAPSULE PO SCH (08:52)
[2023-01-17] MEDS: MULTIVIT W/MINERALS 1 TAB TABLET PO SCH (08:52)
[2023-01-17] MEDS: LEVETIRACETAM (250 MG) 250 MG TABLET PO SCH ×2 (08:52→17:46)
[2023-01-17] MEDS: ASCORBIC ACID 500 MG TABLET PO SCH (08:52)
[2023-01-17] MEDS: FLUCYTOSINE 250 MG CAPSULE PO SCH ×4 (08:52→20:42)
[2023-01-17] MEDS: dexaMETHasone SOD PHOSPHATE 10 MG/ML VIAL IV SCH ×3 (08:53→17:42)
[2023-01-17] MEDS: POLYETHYLENE GLYCOL 3350 17 GM POWD.PACK PO SCH (08:54)
[2023-01-17] MEDS: PROSOURCE / PROSTAT (PYXIS) 30 ML UDC PO SCH ×2 (09:03→17:43)
[2023-01-17] MEDS: hydrALAZINE HCL IV 20 MG VIAL IV PRN (09:52)
[2023-01-17] MEDS: D5W IV SCH (12:30)
[2023-01-17] MEDS: AMPHOTERICIN B LIPOSOME IV SCH (12:30)
[2023-01-17] MEDS: SERTRALINE HCL 50 MG TABLET PO SCH ×2 (13:33→17:46)
[2023-01-17 16:00] VITALS: BP 140/92; TEMP 98.4; O2SAT 99
[2023-01-17 20:00] VITALS: BP 141/95; TEMP 98.6; O2SAT 98
[2023-01-18] MEDS: MEROPENEM 1 G in IV NS 0.9% 100 ML IV SCH (04:40)
[2023-01-18 06:43] LABS: ALBUMIN 2.7 g/dL (3.4-5.0); BILIRUBIN,TOTAL 0.2 mg/dL (0.2-1.0); CALCIUM, SERUM 8.8 mg/dL (8.5-10.1); CREATININE 0.8 mg/dL (0.6-1.3); MAGNESIUM 2.1 mg/dL (1.8-2.4); PHOSPHORUS 3.2 mg/dL (2.5-4.9); POTASSIUM 3.5 mmol/L (3.5-5.1); TOTAL PROTEIN, SERUM 5.9 g/dL (6.4-8.2)
[2023-01-18] MEDS: PANTOPRAZOLE 40 MG TABLET.DR PO SCH (07:47)
[2023-01-18 08:00] VITALS: BP 151/116; TEMP 98.4; O2SAT 96
[2023-01-18] MEDS: HYDROCODONE/APAP 5/325MG TABLET PO PRN (08:04)
[2023-01-18] MEDS: SULFAMETHOXAZOLE/TRIMETHOPRIM 20 ML in IV D5W 500 ML IV SCH ×2 (08:40→20:29)
[2023-01-18] MEDS: POLYETHYLENE GLYCOL 3350 17 GM POWD.PACK PO SCH (09:14)
[2023-01-18] MEDS: ZINC SULFATE 220 MG CAPSULE PO SCH (09:14)
[2023-01-18] MEDS: MULTIVIT W/MINERALS 1 TAB TABLET PO SCH (09:14)
[2023-01-18] MEDS: dexaMETHasone SOD PHOSPHATE 10 MG/ML VIAL IV SCH ×3 (09:15→16:16)
[2023-01-18] MEDS: ASCORBIC ACID 500 MG TABLET PO SCH (09:15)
[2023-01-18] MEDS: FLUCYTOSINE 250 MG CAPSULE PO SCH ×4 (09:16→21:16)
[2023-01-18] MEDS: PROSOURCE / PROSTAT (PYXIS) 30 ML UDC PO SCH ×2 (09:24→16:22)
[2023-01-18] MEDS: LEVETIRACETAM (250 MG) 250 MG TABLET PO SCH ×2 (09:44→16:17)
[2023-01-18 09:53] LABS: BASOPHILS % (AUTO) 0.1 % (0.0-2.0); EOSINOPHILS % (AUTO) 0.1 % (0.0-6.0); HEMATOCRIT 34 % (39-51); LYMPHOCYTES # (AUTO) 1.7 K/uL (0.8-4.8); LYMPHOCYTES % (AUTO) 12.4 % (20.0-44.0); MEAN CORPUSCULAR HEMOGLOBIN 26 PG (26.0-33.0); MEAN CORPUSCULAR HGB CONC 32 g/dl (31.0-36.0); MEAN CORPUSCULAR VOLUME 81 fL (80-96); MONOCYTES # (AUTO) 1.2 K/uL (0.1-1.30); MONOCYTES % (AUTO) 9.1 % (2.0-12.0); NEUTROPHILS # (AUTO) 10.5 K/uL (1.8-8.9); NEUTROPHILS % (AUTO) 78.3 % (43.0-81.0); PLATELET COUNT (AUTO) 293 K/uL (150-450); RED BLOOD CELL COUNT(AUTO) 4.19 MIL/uL (4.5-6.0); RED CELL DISTRIBUTION WIDTH 18.5 % (11.5-15.0); WHITE BLOOD COUNT (AUTO) 13.4 K/uL (4.3-11.0)
[2023-01-18] MEDS: AMPHOTERICIN B LIPOSOME IV SCH (12:20)
[2023-01-18] MEDS: D5W IV SCH (12:20)
[2023-01-18] MEDS: SERTRALINE HCL 50 MG TABLET PO SCH ×2 (13:23→16:16)
[2023-01-18] MEDS: MEROPENEM 2 G in IV NS 0.9% 100 ML IV SCH ×2 (13:28→21:15)
[2023-01-18 16:00] VITALS: BP 141/104; TEMP 98.7; O2SAT 97
[2023-01-18 22:22] VITALS: BP 145/113; TEMP 98.4; O2SAT 98
[2023-01-19] MEDS: MEROPENEM 2 G in IV NS 0.9% 100 ML IV SCH ×3 (04:30→21:12)
[2023-01-19] MEDS: HYDROCODONE/APAP 5/325MG TABLET PO PRN (04:41)
[2023-01-19 05:45] LABS: BASOPHILS % (AUTO) 0.4 % (0.0-2.0); EOSINOPHILS % (AUTO) 0.1 % (0.0-6.0); HEMATOCRIT 32 % (39-51); HEMOGLOBIN 10.4 g/dL (13.5-17.5); LYMPHOCYTES # (AUTO) 1.8 K/uL (0.8-4.8); LYMPHOCYTES % (AUTO) 14.3 % (20.0-44.0); MEAN CORPUSCULAR HEMOGLOBIN 27 PG (26.0-33.0); MEAN CORPUSCULAR HGB CONC 32 g/dl (31.0-36.0); MEAN CORPUSCULAR VOLUME 83 fL (80-96); MONOCYTES # (AUTO) 0.9 K/uL (0.1-1.30); MONOCYTES % (AUTO) 7.6 % (2.0-12.0); NEUTROPHILS # (AUTO) 9.6 K/uL (1.8-8.9); NEUTROPHILS % (AUTO) 77.6 % (43.0-81.0); PLATELET COUNT (AUTO) 256 K/uL (150-450); RED BLOOD CELL COUNT(AUTO) 3.92 MIL/uL (4.5-6.0); RED CELL DISTRIBUTION WIDTH 18.7 % (11.5-15.0); WHITE BLOOD COUNT (AUTO) 12.3 K/uL (4.3-11.0)
[2023-01-19 06:01] LABS: ALBUMIN 2.6 g/dL (3.4-5.0); BILIRUBIN,TOTAL 0.2 mg/dL (0.2-1.0); CALCIUM, SERUM 8.7 mg/dL (8.5-10.1); CREATININE 0.9 mg/dL (0.6-1.3); POTASSIUM 2.9 mmol/L (3.5-5.1); TOTAL PROTEIN, SERUM 5.7 g/dL (6.4-8.2)
[2023-01-19 08:00] VITALS: BP 152/112; TEMP 98.6; O2SAT 98
[2023-01-19] MEDS: PANTOPRAZOLE 40 MG TABLET.DR PO SCH (08:29)
[2023-01-19] MEDS: SULFAMETHOXAZOLE/TRIMETHOPRIM 20 ML in IV D5W 500 ML IV SCH ×2 (08:29→20:13)
[2023-01-19] MEDS: MULTIVIT W/MINERALS 1 TAB TABLET PO SCH (08:29)
[2023-01-19] MEDS: ASCORBIC ACID 500 MG TABLET PO SCH (08:29)
[2023-01-19] MEDS: LEVETIRACETAM (250 MG) 250 MG TABLET PO SCH ×2 (08:30→16:08)
[2023-01-19] MEDS: ZINC SULFATE 220 MG CAPSULE PO SCH (08:30)
[2023-01-19] MEDS: dexaMETHasone SOD PHOSPHATE 10 MG/ML VIAL IV SCH ×3 (08:31→16:08)
[2023-01-19] MEDS: POLYETHYLENE GLYCOL 3350 17 GM POWD.PACK PO SCH (08:31)
[2023-01-19] MEDS: PROSOURCE / PROSTAT (PYXIS) 30 ML UDC PO SCH ×2 (08:32→16:33)
[2023-01-19] MEDS: FLUCYTOSINE 250 MG CAPSULE PO SCH ×5 (08:37→21:11)
[2023-01-19] MEDS: POTASSIUM CL. PREMIX PERIPHER. 50 ML IV SCH ×6 (11:21→17:13)
[2023-01-19] MEDS: SERTRALINE HCL 50 MG TABLET PO SCH ×2 (12:09→16:08)
[2023-01-19] MEDS: D5W IV SCH (14:22)
[2023-01-19] MEDS: AMPHOTERICIN B LIPOSOME IV SCH (14:22)
[2023-01-19 16:00] VITALS: BP 140/101; TEMP 98.4; O2SAT 98
[2023-01-19] MEDS ORDERED: IV 1/2NS 1000 ML 1,000 ML IV ONE ×2 (18:30→19:30)
[2023-01-19 20:00] VITALS: BP 156/100; TEMP 98.8; O2SAT 94
[2023-01-20] MEDS: MEROPENEM 2 G in IV NS 0.9% 100 ML IV SCH ×3 (05:13→22:05)
[2023-01-20 06:02] LABS: BASOPHILS % (AUTO) 0.1 % (0.0-2.0); EOSINOPHILS % (AUTO) 0.3 % (0.0-6.0); HEMATOCRIT 32 % (39-51); HEMOGLOBIN 10.6 g/dL (13.5-17.5); LYMPHOCYTES # (AUTO) 1.4 K/uL (0.8-4.8); LYMPHOCYTES % (AUTO) 15.2 % (20.0-44.0); MEAN CORPUSCULAR HEMOGLOBIN 27 PG (26.0-33.0); MEAN CORPUSCULAR HGB CONC 33 g/dl (31.0-36.0); MEAN CORPUSCULAR VOLUME 81 fL (80-96); MONOCYTES # (AUTO) 0.9 K/uL (0.1-1.30); MONOCYTES % (AUTO) 9.1 % (2.0-12.0); NEUTROPHILS # (AUTO) 7.1 K/uL (1.8-8.9); NEUTROPHILS % (AUTO) 75.3 % (43.0-81.0); PLATELET COUNT (AUTO) 216 K/uL (150-450); RED BLOOD CELL COUNT(AUTO) 3.91 MIL/uL (4.5-6.0); RED CELL DISTRIBUTION WIDTH 18.6 % (11.5-15.0); WHITE BLOOD COUNT (AUTO) 9.4 K/uL (4.3-11.0)
[2023-01-20 06:14] LABS: CALCIUM, SERUM 8.6 mg/dL (8.5-10.1); CREATININE 0.8 mg/dL (0.6-1.3); POTASSIUM 3.3 mmol/L (3.5-5.1)
[2023-01-20 06:15] LABS: ALBUMIN 2.6 g/dL (3.4-5.0); BILIRUBIN,TOTAL 0.2 mg/dL (0.2-1.0); TOTAL PROTEIN, SERUM 5.9 g/dL (6.4-8.2)
[2023-01-20] MEDS: PANTOPRAZOLE 40 MG TABLET.DR PO SCH (07:45)
[2023-01-20 08:00] VITALS: BP 137/106; TEMP 98.6; O2SAT 97
[2023-01-20] MEDS: ZINC SULFATE 220 MG CAPSULE PO SCH (08:36)
[2023-01-20] MEDS: ASCORBIC ACID 500 MG TABLET PO SCH (08:36)
[2023-01-20] MEDS: POLYETHYLENE GLYCOL 3350 17 GM POWD.PACK PO SCH (08:36)
[2023-01-20] MEDS: LEVETIRACETAM (250 MG) 250 MG TABLET PO SCH ×2 (08:36→16:19)
[2023-01-20] MEDS: MULTIVIT W/MINERALS 1 TAB TABLET PO SCH (08:36)
[2023-01-20] MEDS: PROSOURCE / PROSTAT (PYXIS) 30 ML UDC PO SCH ×2 (08:37→16:20)
[2023-01-20] MEDS: dexaMETHasone SOD PHOSPHATE 10 MG/ML VIAL IV SCH ×3 (08:39→16:19)
[2023-01-20] MEDS: SULFAMETHOXAZOLE/TRIMETHOPRIM 20 ML in IV D5W 500 ML IV SCH ×2 (08:43→19:51)
[2023-01-20] MEDS: FLUCYTOSINE 250 MG CAPSULE PO SCH ×4 (08:44→20:03)
[2023-01-20] MEDS ORDERED: POTASSIUM CHLORIDE 20 MEQ TAB.PRT.SR PO SCH (11:00)
[2023-01-20] MEDS: HYDROCODONE/APAP 5/325MG TABLET PO PRN (11:22)
[2023-01-20] MEDS: SERTRALINE HCL 50 MG TABLET PO SCH ×2 (12:16→16:19)
[2023-01-20] MEDS: D5W IV SCH (12:17)
[2023-01-20] MEDS: AMPHOTERICIN B LIPOSOME IV SCH (12:17)
[2023-01-20 16:00] VITALS: BP 142/102; TEMP 98.8; O2SAT 97
[2023-01-20 20:12] VITALS: BP 150/96; TEMP 97.9; O2SAT 97
[2023-01-21] MEDS: MEROPENEM 2 G in IV NS 0.9% 100 ML IV SCH ×3 (04:25→22:15)
[2023-01-21 05:55] LABS: BASOPHILS % (AUTO) 0.1 % (0.0-2.0); EOSINOPHILS % (AUTO) 0.3 % (0.0-6.0); HEMATOCRIT 32 % (39-51); HEMOGLOBIN 10.6 g/dL (13.5-17.5); LYMPHOCYTES # (AUTO) 1.9 K/uL (0.8-4.8); LYMPHOCYTES % (AUTO) 15.4 % (20.0-44.0); MEAN CORPUSCULAR HEMOGLOBIN 27 PG (26.0-33.0); MEAN CORPUSCULAR HGB CONC 33 g/dl (31.0-36.0); MEAN CORPUSCULAR VOLUME 81 fL (80-96); MONOCYTES # (AUTO) 1.2 K/uL (0.1-1.30); MONOCYTES % (AUTO) 10.2 % (2.0-12.0); PLATELET COUNT (AUTO) 204 K/uL (150-450); RED BLOOD CELL COUNT(AUTO) 3.93 MIL/uL (4.5-6.0); WHITE BLOOD COUNT (AUTO) 12.1 K/uL (4.3-11.0)
[2023-01-21 06:14] LABS: ALBUMIN 2.6 g/dL (3.4-5.0); BILIRUBIN,TOTAL 0.3 mg/dL (0.2-1.0); CALCIUM, SERUM 8.5 mg/dL (8.5-10.1); CREATININE 0.8 mg/dL (0.6-1.3); POTASSIUM 2.9 mmol/L (3.5-5.1)
[2023-01-21 08:00] VITALS: BP 146/110; TEMP 98.8; O2SAT 97
[2023-01-21] MEDS: LEVETIRACETAM (250 MG) 250 MG TABLET PO SCH ×2 (08:00→16:07)
[2023-01-21] MEDS: ZINC SULFATE 220 MG CAPSULE PO SCH (08:00)
[2023-01-21] MEDS: ASCORBIC ACID 500 MG TABLET PO SCH (08:00)
[2023-01-21] MEDS: MULTIVIT W/MINERALS 1 TAB TABLET PO SCH (08:00)
[2023-01-21] MEDS: PROSOURCE / PROSTAT (PYXIS) 30 ML UDC PO SCH ×2 (08:00→16:00)
[2023-01-21] MEDS: POLYETHYLENE GLYCOL 3350 17 GM POWD.PACK PO SCH (08:00)
[2023-01-21] MEDS: PANTOPRAZOLE 40 MG TABLET.DR PO SCH (08:00)
[2023-01-21] MEDS: dexaMETHasone SOD PHOSPHATE 10 MG/ML VIAL IV SCH ×3 (08:00→16:07)
[2023-01-21] MEDS: SULFAMETHOXAZOLE/TRIMETHOPRIM 20 ML in IV D5W 500 ML IV SCH ×2 (08:22→20:30)
[2023-01-21] MEDS: HYDROCODONE/APAP 5/325MG TABLET PO PRN ×2 (09:12→20:42)
[2023-01-21] MEDS: FLUCYTOSINE 250 MG CAPSULE PO SCH ×4 (09:43→21:15)
[2023-01-21] MEDS: POTASSIUM CHLORIDE 20 MEQ TAB.PRT.SR PO SCH ×3 (09:45→12:32)
[2023-01-21] MEDS: AMPHOTERICIN B LIPOSOME IV SCH (12:34)
[2023-01-21] MEDS: D5W IV SCH (12:34)
[2023-01-21] MEDS: SERTRALINE HCL 50 MG TABLET PO SCH ×2 (12:45→16:07)
[2023-01-21 16:00] VITALS: BP 134/101; TEMP 98.1; O2SAT 98
[2023-01-21 20:00] VITALS: BP 136/104; TEMP 98.1; O2SAT 97
[2023-01-22] MEDS: MEROPENEM 2 G in IV NS 0.9% 100 ML IV SCH ×3 (04:00→21:36)
[2023-01-22 06:02] LABS: BASOPHILS % (AUTO) 0.1 % (0.0-2.0); EOSINOPHILS % (AUTO) 0.1 % (0.0-6.0); HEMATOCRIT 32 % (39-51); HEMOGLOBIN 10.6 g/dL (13.5-17.5); LYMPHOCYTES # (AUTO) 1.6 K/uL (0.8-4.8); LYMPHOCYTES % (AUTO) 15.9 % (20.0-44.0); MEAN CORPUSCULAR HEMOGLOBIN 27 PG (26.0-33.0); MEAN CORPUSCULAR HGB CONC 33 g/dl (31.0-36.0); MEAN CORPUSCULAR VOLUME 81 fL (80-96); MONOCYTES # (AUTO) 0.7 K/uL (0.1-1.30); MONOCYTES % (AUTO) 7.2 % (2.0-12.0); NEUTROPHILS # (AUTO) 7.7 K/uL (1.8-8.9); NEUTROPHILS % (AUTO) 76.7 % (43.0-81.0); PLATELET COUNT (AUTO) 184 K/uL (150-450); RED BLOOD CELL COUNT(AUTO) 3.91 MIL/uL (4.5-6.0); RED CELL DISTRIBUTION WIDTH 18.9 % (11.5-15.0)
[2023-01-22 06:23] LABS: ALBUMIN 2.6 g/dL (3.4-5.0); BILIRUBIN,TOTAL 0.2 mg/dL (0.2-1.0); CALCIUM, SERUM 8.3 mg/dL (8.5-10.1); CREATININE 0.9 mg/dL (0.6-1.3)
[2023-01-22 06:47] LABS: POTASSIUM 2.6 mmol/L (3.5-5.1)
[2023-01-22 08:00] VITALS: BP 139/98; TEMP 98; O2SAT 98
[2023-01-22] MEDS: LEVETIRACETAM (250 MG) 250 MG TABLET PO SCH ×2 (08:30→16:38)
[2023-01-22] MEDS: POLYETHYLENE GLYCOL 3350 17 GM POWD.PACK PO SCH (08:30)
[2023-01-22] MEDS: ASCORBIC ACID 500 MG TABLET PO SCH (08:30)
[2023-01-22] MEDS: MULTIVIT W/MINERALS 1 TAB TABLET PO SCH (08:30)
[2023-01-22] MEDS: PANTOPRAZOLE 40 MG TABLET.DR PO SCH (08:30)
[2023-01-22] MEDS: ZINC SULFATE 220 MG CAPSULE PO SCH (08:30)
[2023-01-22] MEDS: dexaMETHasone SOD PHOSPHATE 10 MG/ML VIAL IV SCH ×3 (08:31→16:38)
[2023-01-22] MEDS: PROSOURCE / PROSTAT (PYXIS) 30 ML UDC PO SCH ×2 (08:32→16:38)
[2023-01-22] MEDS: FLUCYTOSINE 250 MG CAPSULE PO SCH ×4 (08:35→21:41)
[2023-01-22] MEDS: SULFAMETHOXAZOLE/TRIMETHOPRIM 20 ML in IV D5W 500 ML IV SCH ×2 (08:35→20:10)
[2023-01-22] MEDS ORDERED: POTASSIUM CHLORIDE 20 MEQ TAB.PRT.SR PO ONE ×2 (12:30→14:30)
[2023-01-22] MEDS: SERTRALINE HCL 50 MG TABLET PO SCH ×2 (12:31→16:38)
[2023-01-22] MEDS: AMPHOTERICIN B LIPOSOME IV SCH (14:11)
[2023-01-22] MEDS: D5W IV SCH (14:11)
[2023-01-22 16:09] VITALS: BP 137/99; TEMP 98.6; O2SAT 98
[2023-01-22 20:00] VITALS: BP 148/105; TEMP 97.5; O2SAT 98
[2023-01-22] MEDS: HYDROCODONE/APAP 5/325MG TABLET PO PRN (20:28)
[2023-01-23] MEDS: MEROPENEM 2 G in IV NS 0.9% 100 ML IV SCH ×2 (04:15→17:05)
[2023-01-23 06:13] LABS: BASOPHILS % (AUTO) 0.4 % (0.0-2.0); EOSINOPHILS % (AUTO) 0.2 % (0.0-6.0); HEMATOCRIT 31 % (39-51); HEMOGLOBIN 10.6 g/dL (13.5-17.5); LYMPHOCYTES # (AUTO) 1.8 K/uL (0.8-4.8); LYMPHOCYTES % (AUTO) 17.7 % (20.0-44.0); MEAN CORPUSCULAR HEMOGLOBIN 27 PG (26.0-33.0); MEAN CORPUSCULAR HGB CONC 34 g/dl (31.0-36.0); MEAN CORPUSCULAR VOLUME 81 fL (80-96); MONOCYTES # (AUTO) 0.6 K/uL (0.1-1.30); MONOCYTES % (AUTO) 6.2 % (2.0-12.0); NEUTROPHILS # (AUTO) 7.5 K/uL (1.8-8.9); NEUTROPHILS % (AUTO) 75.5 % (43.0-81.0); PLATELET COUNT (AUTO) 148 K/uL (150-450); RED BLOOD CELL COUNT(AUTO) 3.89 MIL/uL (4.5-6.0); RED CELL DISTRIBUTION WIDTH 18.9 % (11.5-15.0); WHITE BLOOD COUNT (AUTO) 9.9 K/uL (4.3-11.0)
[2023-01-23 06:49] LABS: ALBUMIN 2.6 g/dL (3.4-5.0); BILIRUBIN,TOTAL 0.2 mg/dL (0.2-1.0); CALCIUM, SERUM 8.4 mg/dL (8.5-10.1); CREATININE 0.8 mg/dL (0.6-1.3); MAGNESIUM 2.3 mg/dL (1.8-2.4); POTASSIUM 3.2 mmol/L (3.5-5.1); TOTAL PROTEIN, SERUM 6.1 g/dL (6.4-8.2)
[2023-01-23 08:00] VITALS: BP 149/111; TEMP 97.7; O2SAT 98
[2023-01-23] MEDS: POLYETHYLENE GLYCOL 3350 17 GM POWD.PACK PO SCH (08:58)
[2023-01-23] MEDS: MULTIVIT W/MINERALS 1 TAB TABLET PO SCH (08:59)
[2023-01-23] MEDS: dexaMETHasone SOD PHOSPHATE 10 MG/ML VIAL IV SCH ×3 (08:59→16:34)
[2023-01-23] MEDS: ASCORBIC ACID 500 MG TABLET PO SCH (08:59)
[2023-01-23] MEDS: SULFAMETHOXAZOLE/TRIMETHOPRIM 20 ML in IV D5W 500 ML IV SCH ×2 (08:59→20:40)
[2023-01-23] MEDS: ZINC SULFATE 220 MG CAPSULE PO SCH (08:59)
[2023-01-23] MEDS: LEVETIRACETAM (250 MG) 250 MG TABLET PO SCH ×2 (08:59→16:34)
[2023-01-23] MEDS: PANTOPRAZOLE 40 MG TABLET.DR PO SCH (09:02)
[2023-01-23] MEDS: FLUCYTOSINE 250 MG CAPSULE PO SCH ×4 (09:02→21:51)
[2023-01-23] MEDS: PROSOURCE / PROSTAT (PYXIS) 30 ML UDC PO SCH ×2 (09:02→16:34)
[2023-01-23] MEDS: POTASSIUM CHLORIDE 20 MEQ TAB.PRT.SR PO SCH ×2 (11:16→12:20)
[2023-01-23] MEDS: SERTRALINE HCL 50 MG TABLET PO SCH ×2 (12:19→16:34)
[2023-01-23] MEDS: D5W IV SCH (13:13)
[2023-01-23] MEDS: AMPHOTERICIN B LIPOSOME IV SCH (13:13)
[2023-01-23 16:00] VITALS: BP 131/99; TEMP 98.4; O2SAT 98
[2023-01-23 20:00] VITALS: BP 137/95; TEMP 99; O2SAT 96
[2023-01-24] MEDS: MEROPENEM 2 G in IV NS 0.9% 100 ML IV SCH ×3 (01:14→18:36)
[2023-01-24 06:53] LABS: BASOPHILS % (AUTO) 0.1 % (0.0-2.0); EOSINOPHILS % (AUTO) 0.2 % (0.0-6.0); HEMATOCRIT 32 % (39-51); HEMOGLOBIN 10.7 g/dL (13.5-17.5); LYMPHOCYTES # (AUTO) 1.7 K/uL (0.8-4.8); LYMPHOCYTES % (AUTO) 19.1 % (20.0-44.0); MEAN CORPUSCULAR HEMOGLOBIN 27 PG (26.0-33.0); MEAN CORPUSCULAR HGB CONC 34 g/dl (31.0-36.0); MEAN CORPUSCULAR VOLUME 81 fL (80-96); MONOCYTES # (AUTO) 0.7 K/uL (0.1-1.30); MONOCYTES % (AUTO) 7.4 % (2.0-12.0); NEUTROPHILS # (AUTO) 6.4 K/uL (1.8-8.9); NEUTROPHILS % (AUTO) 73.2 % (43.0-81.0); PLATELET COUNT (AUTO) 168 K/uL (150-450); RED BLOOD CELL COUNT(AUTO) 3.94 MIL/uL (4.5-6.0); RED CELL DISTRIBUTION WIDTH 19.1 % (11.5-15.0); WHITE BLOOD COUNT (AUTO) 8.8 K/uL (4.3-11.0)
[2023-01-24 07:23] LABS: ALBUMIN 2.7 g/dL (3.4-5.0); BILIRUBIN,TOTAL 0.2 mg/dL (0.2-1.0); CALCIUM, SERUM 8.6 mg/dL (8.5-10.1); POTASSIUM 2.9 mmol/L (3.5-5.1); TOTAL PROTEIN, SERUM 6.1 g/dL (6.4-8.2)
[2023-01-24] MEDS: PANTOPRAZOLE 40 MG TABLET.DR PO SCH (07:49)
[2023-01-24 08:00] VITALS: BP 146/100; TEMP 97.6; O2SAT 98
[2023-01-24] MEDS: LEVETIRACETAM (250 MG) 250 MG TABLET PO SCH ×2 (08:49→18:16)
[2023-01-24] MEDS: ZINC SULFATE 220 MG CAPSULE PO SCH (08:49)
[2023-01-24] MEDS: FLUCYTOSINE 250 MG CAPSULE PO SCH ×4 (08:49→21:18)
[2023-01-24] MEDS: ASCORBIC ACID 500 MG TABLET PO SCH (08:49)
[2023-01-24] MEDS: MULTIVIT W/MINERALS 1 TAB TABLET PO SCH (08:49)
[2023-01-24] MEDS: dexaMETHasone SOD PHOSPHATE 10 MG/ML VIAL IV SCH (08:50)
[2023-01-24] MEDS: SULFAMETHOXAZOLE/TRIMETHOPRIM 20 ML in IV D5W 500 ML IV SCH ×2 (08:50→21:18)
[2023-01-24] MEDS: POLYETHYLENE GLYCOL 3350 17 GM POWD.PACK PO SCH (08:50)
[2023-01-24] MEDS ORDERED: POTASSIUM CHLORIDE 20 MEQ TAB.PRT.SR PO ONE (09:00)
[2023-01-24] MEDS: PROSOURCE / PROSTAT (PYXIS) 30 ML UDC PO SCH ×2 (10:20→18:17)
[2023-01-24] MEDS ORDERED: OLANZAPINE 2.5 MG TABLET PO PRN (12:30)
[2023-01-24] MEDS: D5W IV SCH (12:45)
[2023-01-24] MEDS: AMPHOTERICIN B LIPOSOME IV SCH (12:45)
[2023-01-24] MEDS ORDERED: dexAMETHasone 4 MG TABLET PO SCH (13:00)
[2023-01-24 16:00] VITALS: BP 150/108; TEMP 97.9; O2SAT 98
[2023-01-24] MEDS: dexAMETHasone 4 MG TABLET PO SCH (18:19)
[2023-01-24 20:00] VITALS: BP 151/107; TEMP 98.2; O2SAT 98
[2023-01-24 23:30] LABS: ANISOCYTOSIS 1+; EOSINOPHILS % (MANUAL) 2 % (0-4); LYMPHOCYTES % (MANUAL) 15 % (16-48); MONOCYTES % (MANUAL) 7 % (0-11.0); NEUTROPHILS % (MANUAL) 76 (42-76); PLATELET ESTIMATE ADEQUATE
[2023-01-25] MEDS: MEROPENEM 2 G in IV NS 0.9% 100 ML IV SCH ×3 (01:20→17:00)
[2023-01-25 06:30] LABS: BASOPHILS % (AUTO) 0.3 % (0.0-2.0); EOSINOPHILS # (AUTO) 0.1 K/uL (0.0-0.7); EOSINOPHILS % (AUTO) 1.4 % (0.0-6.0); HEMATOCRIT 34 % (39-51); HEMOGLOBIN 11.2 g/dL (13.5-17.5); LYMPHOCYTES # (AUTO) 1.5 K/uL (0.8-4.8); LYMPHOCYTES % (AUTO) 19.3 % (20.0-44.0); MEAN CORPUSCULAR HEMOGLOBIN 27 PG (26.0-33.0); MEAN CORPUSCULAR HGB CONC 33 g/dl (31.0-36.0); MEAN CORPUSCULAR VOLUME 81 fL (80-96); MONOCYTES # (AUTO) 0.7 K/uL (0.1-1.30); MONOCYTES % (AUTO) 9.1 % (2.0-12.0); NEUTROPHILS # (AUTO) 5.2 K/uL (1.8-8.9); NEUTROPHILS % (AUTO) 69.9 % (43.0-81.0); PLATELET COUNT (AUTO) 149 K/uL (150-450); RED BLOOD CELL COUNT(AUTO) 4.19 MIL/uL (4.5-6.0); RED CELL DISTRIBUTION WIDTH 19.5 % (11.5-15.0); WHITE BLOOD COUNT (AUTO) 7.5 K/uL (4.3-11.0)
[2023-01-25 07:18] LABS: ALBUMIN 2.7 g/dL (3.4-5.0); BILIRUBIN,TOTAL 0.2 mg/dL (0.2-1.0); CALCIUM, SERUM 8.4 mg/dL (8.5-10.1); CREATININE 1.1 mg/dL (0.6-1.3); TOTAL PROTEIN, SERUM 6.1 g/dL (6.4-8.2)
[2023-01-25 08:00] VITALS: BP 133/96; TEMP 98; O2SAT 99
[2023-01-25] MEDS: dexAMETHasone 4 MG TABLET PO SCH ×2 (08:51→18:07)
[2023-01-25] MEDS: ZINC SULFATE 220 MG CAPSULE PO SCH (08:52)
[2023-01-25] MEDS: PANTOPRAZOLE 40 MG TABLET.DR PO SCH (08:52)
[2023-01-25] MEDS: ASCORBIC ACID 500 MG TABLET PO SCH (08:52)
[2023-01-25] MEDS: LEVETIRACETAM (250 MG) 250 MG TABLET PO SCH ×2 (08:53→18:07)
[2023-01-25] MEDS: MULTIVIT W/MINERALS 1 TAB TABLET PO SCH (08:53)
[2023-01-25] MEDS: PROSOURCE / PROSTAT (PYXIS) 30 ML UDC PO SCH ×2 (08:55→18:08)
[2023-01-25] MEDS: POLYETHYLENE GLYCOL 3350 17 GM POWD.PACK PO SCH (08:55)
[2023-01-25] MEDS: SULFAMETHOXAZOLE/TRIMETHOPRIM 20 ML in IV D5W 500 ML IV SCH ×2 (09:39→20:00)
[2023-01-25] MEDS ORDERED: POTASSIUM CHLORIDE 20 MEQ TAB.PRT.SR PO ONE (11:00)
[2023-01-25] MEDS: LORAZEPAM INJ 2 MG/ML VIAL IM/IV PRN (11:06)
[2023-01-25 12:00] VITALS: BP 106/73; TEMP 97.5; O2SAT 94
[2023-01-25] MEDS ORDERED: OLANZAPINE 10 MG VIAL IM PRN (12:00)
[2023-01-25] MEDS: OLANZAPINE 5 MG TABLET PO SCH ×2 (12:52→18:07)
[2023-01-25] MEDS: FLUCONAZOLE (100 MG) 100 MG TABLET PO SCH (12:52)
[2023-01-25 13:39] LABS: BAND % (MANUAL) 1 % (0.0-5.0); EOSINOPHILS % (MANUAL) 1 % (0-4); LYMPHOCYTES % (MANUAL) 21 % (16-48); MONOCYTES % (MANUAL) 6 % (0-11.0); NEUTROPHILS % (MANUAL) 71 (42-76)
[2023-01-25 13:40] LABS: ANISOCYTOSIS 1+
[2023-01-25 13:50] LABS: PLATELET ESTIMATE ADEQU
[2023-01-25 15:56] VITALS: BP 132/94; TEMP 97.9; O2SAT 97
[2023-01-26] MEDS: MEROPENEM 2 G in IV NS 0.9% 100 ML IV SCH ×4 (01:00→17:47)
[2023-01-26] MEDS ORDERED: MEROPENEM 1 G VIAL IV ONE (03:38)
[2023-01-26 06:22] LABS: BASOPHILS % (AUTO) 0.3 % (0.0-2.0); EOSINOPHILS % (AUTO) 0.2 % (0.0-6.0); HEMATOCRIT 34 % (39-51); HEMOGLOBIN 11.2 g/dL (13.5-17.5); LYMPHOCYTES # (AUTO) 1.7 K/uL (0.8-4.8); LYMPHOCYTES % (AUTO) 18.4 % (20.0-44.0); MEAN CORPUSCULAR HEMOGLOBIN 27 PG (26.0-33.0); MEAN CORPUSCULAR HGB CONC 33 g/dl (31.0-36.0); MEAN CORPUSCULAR VOLUME 83 fL (80-96); MONOCYTES # (AUTO) 0.4 K/uL (0.1-1.30); MONOCYTES % (AUTO) 4.5 % (2.0-12.0); NEUTROPHILS % (AUTO) 76.6 % (43.0-81.0); PLATELET COUNT (AUTO) 151 K/uL (150-450); RED BLOOD CELL COUNT(AUTO) 4.12 MIL/uL (4.5-6.0); RED CELL DISTRIBUTION WIDTH 19.8 % (11.5-15.0); WHITE BLOOD COUNT (AUTO) 9.2 K/uL (4.3-11.0)
[2023-01-26 06:44] LABS: ALBUMIN 2.8 g/dL (3.4-5.0); BILIRUBIN,TOTAL 0.2 mg/dL (0.2-1.0); CALCIUM, SERUM 8.6 mg/dL (8.5-10.1); POTASSIUM 3.7 mmol/L (3.5-5.1); TOTAL PROTEIN, SERUM 6.4 g/dL (6.4-8.2)
[2023-01-26] MEDS: PANTOPRAZOLE 40 MG TABLET.DR PO SCH (07:36)
[2023-01-26] MEDS: SULFAMETHOXAZOLE/TRIMETHOPRIM 20 ML in IV D5W 500 ML IV SCH ×2 (07:51→21:11)
[2023-01-26 08:00] VITALS: BP 145/106; TEMP 97.7; O2SAT 98
[2023-01-26] MEDS: POLYETHYLENE GLYCOL 3350 17 GM POWD.PACK PO SCH (08:30)
[2023-01-26] MEDS: dexAMETHasone 4 MG TABLET PO SCH ×2 (08:30→16:55)
[2023-01-26] MEDS: FLUCONAZOLE (100 MG) 100 MG TABLET PO SCH (08:30)
[2023-01-26] MEDS: LEVETIRACETAM (250 MG) 250 MG TABLET PO SCH ×2 (08:30→16:54)
[2023-01-26] MEDS: PROSOURCE / PROSTAT (PYXIS) 30 ML UDC PO SCH ×2 (08:31→16:55)
[2023-01-26] MEDS: ZINC SULFATE 220 MG CAPSULE PO SCH (08:31)
[2023-01-26] MEDS: ASCORBIC ACID 500 MG TABLET PO SCH (08:31)
[2023-01-26] MEDS: MULTIVIT W/MINERALS 1 TAB TABLET PO SCH (08:31)
[2023-01-26] MEDS: OLANZAPINE 5 MG TABLET PO SCH ×3 (08:31→16:54)
[2023-01-26 10:50] LABS: BAND % (MANUAL) 1 % (0.0-5.0); LYMPHOCYTES % (MANUAL) 16 % (16-48); MONOCYTES % (MANUAL) 3 % (0-11.0); MYELOCYTES % 1 % (0-0); NEUTROPHILS % (MANUAL) 79 (42-76); PLATELET ESTIMATE ADEQUATE
[2023-01-26 10:51] LABS: ANISOCYTOSIS 2+
[2023-01-26] MEDS ORDERED: LEVETIRACETAM (250 MG) 250 MG TABLET PO STA (13:02)
[2023-01-26] MEDS ORDERED: dexAMETHasone 1 MG/ML UDC PO STA (13:02)
[2023-01-26] MEDS ORDERED: dexAMETHasone 1 MG TABLET PO STA (13:14)
[2023-01-26 16:00] VITALS: BP 146/90; TEMP 98.1; O2SAT 100
[2023-01-26 20:00] VITALS: BP 140/100; TEMP 98.2; O2SAT 98
[2023-01-27] MEDS: MEROPENEM 2 G in IV NS 0.9% 100 ML IV SCH ×3 (01:32→17:11)
[2023-01-27 06:32] LABS: ALBUMIN 2.7 g/dL (3.4-5.0); BILIRUBIN,TOTAL 0.2 mg/dL (0.2-1.0); CALCIUM, SERUM 8.5 mg/dL (8.5-10.1); POTASSIUM 3.7 mmol/L (3.5-5.1); TOTAL PROTEIN, SERUM 6.1 g/dL (6.4-8.2)
[2023-01-27 07:30] LABS: BASOPHILS % (AUTO) 0.4 % (0.0-2.0); EOSINOPHILS # (AUTO) 0.1 K/uL (0.0-0.7); EOSINOPHILS % (AUTO) 0.6 % (0.0-6.0); HEMATOCRIT 32 % (39-51); HEMOGLOBIN 10.5 g/dL (13.5-17.5); LYMPHOCYTES # (AUTO) 1.3 K/uL (0.8-4.8); LYMPHOCYTES % (AUTO) 15.3 % (20.0-44.0); MEAN CORPUSCULAR HEMOGLOBIN 28 PG (26.0-33.0); MEAN CORPUSCULAR HGB CONC 33 g/dl (31.0-36.0); MEAN CORPUSCULAR VOLUME 83 fL (80-96); MONOCYTES # (AUTO) 0.4 K/uL (0.1-1.30); MONOCYTES % (AUTO) 4.4 % (2.0-12.0); NEUTROPHILS # (AUTO) 6.7 K/uL (1.8-8.9); NEUTROPHILS % (AUTO) 79.3 % (43.0-81.0); PLATELET COUNT (AUTO) 127 K/uL (150-450); RED CELL DISTRIBUTION WIDTH 20.6 % (11.5-15.0); WHITE BLOOD COUNT (AUTO) 8.5 K/uL (4.3-11.0)
[2023-01-27] MEDS: PANTOPRAZOLE 40 MG TABLET.DR PO SCH (07:46)
[2023-01-27 08:00] VITALS: BP 132/98; TEMP 97.5; O2SAT 99
[2023-01-27] MEDS: SULFAMETHOXAZOLE/TRIMETHOPRIM 20 ML in IV D5W 500 ML IV SCH ×2 (08:43→20:15)
[2023-01-27] MEDS: dexAMETHasone 4 MG TABLET PO SCH (09:09)
[2023-01-27] MEDS: POLYETHYLENE GLYCOL 3350 17 GM POWD.PACK PO SCH (09:10)
[2023-01-27] MEDS: FLUCONAZOLE (100 MG) 100 MG TABLET PO SCH (09:10)
[2023-01-27] MEDS: PROSOURCE / PROSTAT (PYXIS) 30 ML UDC PO SCH ×2 (09:10→16:59)
[2023-01-27] MEDS: LEVETIRACETAM (250 MG) 250 MG TABLET PO SCH ×2 (09:10→16:59)
[2023-01-27] MEDS: MULTIVIT W/MINERALS 1 TAB TABLET PO SCH (09:10)
[2023-01-27] MEDS: OLANZAPINE 5 MG TABLET PO SCH ×3 (09:11→16:59)
[2023-01-27] MEDS: ASCORBIC ACID 500 MG TABLET PO SCH (09:11)
[2023-01-27] MEDS: ZINC SULFATE 220 MG CAPSULE PO SCH (09:11)
[2023-01-27 09:20] VITALS: BP 155/91; TEMP 97.9; O2SAT 90
[2023-01-27 16:00] VITALS: BP 132/97; TEMP 97.3; O2SAT 97
[2023-01-27 21:50] VITALS: BP 137/100; TEMP 97.2; O2SAT 98
[2023-01-28] MEDS: MEROPENEM 2 G in IV NS 0.9% 100 ML IV SCH ×3 (01:40→18:55)
[2023-01-28 06:47] LABS: ALBUMIN 2.5 g/dL (3.4-5.0); BILIRUBIN,TOTAL 0.2 mg/dL (0.2-1.0); CALCIUM, SERUM 8.5 mg/dL (8.5-10.1); CREATININE 1.2 mg/dL (0.6-1.3); TOTAL PROTEIN, SERUM 5.7 g/dL (6.4-8.2)
[2023-01-28 07:41] LABS: POTASSIUM 3.9 mmol/L (3.5-5.1)
[2023-01-28 08:00] VITALS: BP 147/113; TEMP 98.8; O2SAT 97
[2023-01-28] MEDS: SULFAMETHOXAZOLE/TRIMETHOPRIM 20 ML in IV D5W 500 ML IV SCH ×2 (08:53→20:29)
[2023-01-28] MEDS: PANTOPRAZOLE 40 MG TABLET.DR PO SCH (08:57)
[2023-01-28] MEDS: MULTIVIT W/MINERALS 1 TAB TABLET PO SCH (08:58)
[2023-01-28] MEDS: dexAMETHasone 1 MG TABLET PO SCH (08:58)
[2023-01-28] MEDS: OLANZAPINE 5 MG TABLET PO SCH ×3 (08:59→16:34)
[2023-01-28] MEDS: ZINC SULFATE 220 MG CAPSULE PO SCH (08:59)
[2023-01-28] MEDS: LEVETIRACETAM (250 MG) 250 MG TABLET PO SCH ×2 (08:59→16:33)
[2023-01-28] MEDS: ASCORBIC ACID 500 MG TABLET PO SCH (08:59)
[2023-01-28] MEDS: POLYETHYLENE GLYCOL 3350 17 GM POWD.PACK PO SCH (09:00)
[2023-01-28] MEDS ORDERED: dexAMETHasone 1 MG/ML UDC PO SCH (09:00)
[2023-01-28] MEDS: PROSOURCE / PROSTAT (PYXIS) 30 ML UDC PO SCH ×2 (09:00→16:34)
[2023-01-28] MEDS: FLUCONAZOLE (100 MG) 100 MG TABLET PO SCH (09:53)
[2023-01-28] MEDS ORDERED: GADOTERATE MEGLUMINE 10 MMOL/20 ML VIAL IV ONE (13:33)
[2023-01-28 16:00] VITALS: BP 142/84; TEMP 97.6; O2SAT 93
[2023-01-28 16:01] VITALS: BP 142/105; TEMP 98.1; O2SAT 99
[2023-01-28 20:00] VITALS: BP 146/99; TEMP 97.9; O2SAT 100
[2023-01-29] MEDS ORDERED: MEROPENEM 1 G VIAL IV ONE (01:56)
[2023-01-29] MEDS: MEROPENEM 2 G in IV NS 0.9% 100 ML IV SCH ×3 (02:01→17:49)
[2023-01-29] MEDS: PANTOPRAZOLE 40 MG TABLET.DR PO SCH (07:58)
[2023-01-29 08:00] VITALS: BP 148/110; TEMP 97.7; O2SAT 99
[2023-01-29] MEDS: POLYETHYLENE GLYCOL 3350 17 GM POWD.PACK PO SCH ×2 (08:25→09:00)
[2023-01-29] MEDS: PROSOURCE / PROSTAT (PYXIS) 30 ML UDC PO SCH ×2 (08:25→17:02)
[2023-01-29] MEDS: ZINC SULFATE 220 MG CAPSULE PO SCH (08:25)
[2023-01-29] MEDS: ASCORBIC ACID 500 MG TABLET PO SCH (08:25)
[2023-01-29] MEDS: MULTIVIT W/MINERALS 1 TAB TABLET PO SCH (08:25)
[2023-01-29] MEDS: OLANZAPINE 5 MG TABLET PO SCH ×3 (08:25→17:02)
[2023-01-29] MEDS: LEVETIRACETAM (250 MG) 250 MG TABLET PO SCH ×2 (08:26→17:02)
[2023-01-29] MEDS: dexAMETHasone 1 MG TABLET PO SCH (08:26)
[2023-01-29] MEDS: FLUCONAZOLE (100 MG) 100 MG TABLET PO SCH (08:26)
[2023-01-29] MEDS: SULFAMETHOXAZOLE/TRIMETHOPRIM 20 ML in IV D5W 500 ML IV SCH ×2 (08:32→20:32)
[2023-01-29 15:57] VITALS: BP 138/106; TEMP 98.4; O2SAT 98
[2023-01-29 20:00] VITALS: BP 143/100; TEMP 97.8; O2SAT 97
[2023-01-30] MEDS: MEROPENEM 2 G in IV NS 0.9% 100 ML IV SCH ×2 (00:41→08:54)
[2023-01-30 07:30] VITALS: BP 150/108; TEMP 97.9; O2SAT 98
[2023-01-30] MEDS: OLANZAPINE 5 MG TABLET PO SCH ×3 (08:25→17:32)
[2023-01-30] MEDS: PANTOPRAZOLE 40 MG TABLET.DR PO SCH (08:25)
[2023-01-30] MEDS: ZINC SULFATE 220 MG CAPSULE PO SCH (08:25)
[2023-01-30] MEDS: SULFAMETHOXAZOLE/TRIMETHOPRIM 20 ML in IV D5W 500 ML IV SCH ×2 (08:25→20:06)
[2023-01-30] MEDS: ASCORBIC ACID 500 MG TABLET PO SCH (08:25)
[2023-01-30] MEDS: LEVETIRACETAM (250 MG) 250 MG TABLET PO SCH ×2 (08:25→17:32)
[2023-01-30] MEDS: dexAMETHasone 1 MG TABLET PO SCH (08:26)
[2023-01-30] MEDS: POLYETHYLENE GLYCOL 3350 17 GM POWD.PACK PO SCH (08:26)
[2023-01-30] MEDS: MULTIVIT W/MINERALS 1 TAB TABLET PO SCH (08:26)
[2023-01-30] MEDS: FLUCONAZOLE (100 MG) 100 MG TABLET PO SCH (08:26)
[2023-01-30] MEDS: PROSOURCE / PROSTAT (PYXIS) 30 ML UDC PO SCH ×2 (08:27→17:32)
[2023-01-30 15:39] VITALS: BP 145/106; TEMP 98.4; O2SAT 98
[2023-01-30 20:00] VITALS: BP 143/100; TEMP 98.1; O2SAT 96
[2023-01-31] MEDS ORDERED: MEROPENEM 1 G VIAL IV ONE (00:29)
[2023-01-31] MEDS: MEROPENEM 2 G in IV NS 0.9% 100 ML IV SCH ×3 (01:02→16:56)
[2023-01-31 05:43] LABS: BASOPHILS % (AUTO) 0.3 % (0.0-2.0); EOSINOPHILS % (AUTO) 0.4 % (0.0-6.0); HEMATOCRIT 34 % (39-51); LYMPHOCYTES # (AUTO) 1.5 K/uL (0.8-4.8); LYMPHOCYTES % (AUTO) 22.4 % (20.0-44.0); MEAN CORPUSCULAR HEMOGLOBIN 27 PG (26.0-33.0); MEAN CORPUSCULAR HGB CONC 33 g/dl (31.0-36.0); MEAN CORPUSCULAR VOLUME 82 fL (80-96); MONOCYTES # (AUTO) 0.5 K/uL (0.1-1.30); MONOCYTES % (AUTO) 7.2 % (2.0-12.0); NEUTROPHILS # (AUTO) 4.6 K/uL (1.8-8.9); NEUTROPHILS % (AUTO) 69.7 % (43.0-81.0); PLATELET COUNT (AUTO) 172 K/uL (150-450); RED BLOOD CELL COUNT(AUTO) 4.09 MIL/uL (4.5-6.0); RED CELL DISTRIBUTION WIDTH 20.6 % (11.5-15.0); WHITE BLOOD COUNT (AUTO) 6.6 K/uL (4.3-11.0)
[2023-01-31 06:09] LABS: ALBUMIN 2.8 g/dL (3.4-5.0); BILIRUBIN,TOTAL 0.1 mg/dL (0.2-1.0); CALCIUM, SERUM 8.4 mg/dL (8.5-10.1); CREATININE 1.1 mg/dL (0.6-1.3); MAGNESIUM 2.3 mg/dL (1.8-2.4); PHOSPHORUS 3.1 mg/dL (2.5-4.9); TOTAL PROTEIN, SERUM 6.2 g/dL (6.4-8.2)
[2023-01-31] MEDS: PANTOPRAZOLE 40 MG TABLET.DR PO SCH (07:41)
[2023-01-31 08:21] VITALS: BP_SYST 133; BP_SYST 141; BP_DIAS 100; BP_DIAS 73; TEMP 97; TEMP 97.7; O2SAT 94; O2SAT 97
[2023-01-31] MEDS: SULFAMETHOXAZOLE/TRIMETHOPRIM 20 ML in IV D5W 500 ML IV SCH ×2 (09:04→20:08)
[2023-01-31] MEDS: PROSOURCE / PROSTAT (PYXIS) 30 ML UDC PO SCH ×2 (09:04→16:12)
[2023-01-31] MEDS: OLANZAPINE 5 MG TABLET PO SCH ×3 (09:11→16:11)
[2023-01-31] MEDS: MULTIVIT W/MINERALS 1 TAB TABLET PO SCH (09:11)
[2023-01-31] MEDS: ASCORBIC ACID 500 MG TABLET PO SCH (09:11)
[2023-01-31] MEDS: LEVETIRACETAM (250 MG) 250 MG TABLET PO SCH ×2 (09:11→16:11)
[2023-01-31] MEDS: ZINC SULFATE 220 MG CAPSULE PO SCH (09:11)
[2023-01-31] MEDS: dexAMETHasone 1 MG TABLET PO SCH (09:11)
[2023-01-31] MEDS: POLYETHYLENE GLYCOL 3350 17 GM POWD.PACK PO SCH (09:12)
[2023-01-31] MEDS: FLUCONAZOLE (100 MG) 100 MG TABLET PO SCH (09:55)
[2023-01-31 16:01] VITALS: BP 137/107; TEMP 97.6; O2SAT 98
[2023-01-31 20:00] VITALS: BP 136/104; TEMP 97.7; O2SAT 98
[2023-02-01] MEDS: MEROPENEM 2 G in IV NS 0.9% 100 ML IV SCH ×3 (01:04→17:25)
[2023-02-01 06:54] LABS: CALCIUM, SERUM 8.4 mg/dL (8.5-10.1); CREATININE 1.1 mg/dL (0.6-1.3); POTASSIUM 3.6 mmol/L (3.5-5.1)
[2023-02-01] MEDS: PANTOPRAZOLE 40 MG TABLET.DR PO SCH (07:21)
[2023-02-01] MEDS: SULFAMETHOXAZOLE/TRIMETHOPRIM 20 ML in IV D5W 500 ML IV SCH ×2 (07:51→20:10)
[2023-02-01 08:00] VITALS: BP 144/109; TEMP 98; O2SAT 98
[2023-02-01] MEDS: POLYETHYLENE GLYCOL 3350 17 GM POWD.PACK PO SCH (09:00)
[2023-02-01] MEDS: FLUCONAZOLE (100 MG) 100 MG TABLET PO SCH (09:15)
[2023-02-01] MEDS: OLANZAPINE 5 MG TABLET PO SCH ×3 (09:16→16:18)
[2023-02-01] MEDS: ASCORBIC ACID 500 MG TABLET PO SCH (09:16)
[2023-02-01] MEDS: dexAMETHasone 1 MG TABLET PO SCH (09:16)
[2023-02-01] MEDS: ZINC SULFATE 220 MG CAPSULE PO SCH (09:16)
[2023-02-01] MEDS: LEVETIRACETAM (250 MG) 250 MG TABLET PO SCH ×2 (09:16→16:18)
[2023-02-01] MEDS: MULTIVIT W/MINERALS 1 TAB TABLET PO SCH (09:16)
[2023-02-01] MEDS: PROSOURCE / PROSTAT (PYXIS) 30 ML UDC PO SCH ×2 (09:19→16:18)
[2023-02-01 15:52] VITALS: BP 148/101; TEMP 98.2; O2SAT 98
[2023-02-01 20:00] VITALS: BP 133/104; TEMP 98.2; O2SAT 97
[2023-02-01] MEDS: HYDROCODONE/APAP 5/325MG TABLET PO PRN (21:49)
[2023-02-02] MEDS: MEROPENEM 2 G in IV NS 0.9% 100 ML IV SCH ×3 (02:10→17:28)
[2023-02-02 08:00] VITALS: BP 139/106; TEMP 97.9; O2SAT 98
[2023-02-02] MEDS: MULTIVIT W/MINERALS 1 TAB TABLET PO SCH (08:15)
[2023-02-02] MEDS: SULFAMETHOXAZOLE/TRIMETHOPRIM 20 ML in IV D5W 500 ML IV SCH ×2 (08:15→20:33)
[2023-02-02] MEDS: PROSOURCE / PROSTAT (PYXIS) 30 ML UDC PO SCH ×2 (08:16→16:12)
[2023-02-02] MEDS: PANTOPRAZOLE 40 MG TABLET.DR PO SCH (08:16)
[2023-02-02] MEDS: ZINC SULFATE 220 MG CAPSULE PO SCH (08:16)
[2023-02-02] MEDS: LEVETIRACETAM (250 MG) 250 MG TABLET PO SCH ×2 (08:16→16:06)
[2023-02-02] MEDS: dexAMETHasone 1 MG TABLET PO SCH (08:16)
[2023-02-02] MEDS: FLUCONAZOLE (100 MG) 100 MG TABLET PO SCH (08:16)
[2023-02-02] MEDS: ASCORBIC ACID 500 MG TABLET PO SCH (08:16)
[2023-02-02] MEDS: POLYETHYLENE GLYCOL 3350 17 GM POWD.PACK PO SCH ×2 (08:16→09:00)
[2023-02-02] MEDS: OLANZAPINE 5 MG TABLET PO SCH ×3 (09:35→16:06)
[2023-02-02 10:00] LABS: BASOPHILS % (AUTO) 0.5 % (0.0-2.0); EOSINOPHILS # (AUTO) 0.1 K/uL (0.0-0.7); EOSINOPHILS % (AUTO) 2.2 % (0.0-6.0); HEMATOCRIT 32 % (39-51); HEMOGLOBIN 10.5 g/dL (13.5-17.5); LYMPHOCYTES # (AUTO) 1.5 K/uL (0.8-4.8); LYMPHOCYTES % (AUTO) 26.5 % (20.0-44.0); MEAN CORPUSCULAR HEMOGLOBIN 27 PG (26.0-33.0); MEAN CORPUSCULAR HGB CONC 33 g/dl (31.0-36.0); MEAN CORPUSCULAR VOLUME 83 fL (80-96); MONOCYTES # (AUTO) 0.4 K/uL (0.1-1.30); MONOCYTES % (AUTO) 6.7 % (2.0-12.0); NEUTROPHILS # (AUTO) 3.7 K/uL (1.8-8.9); NEUTROPHILS % (AUTO) 64.1 % (43.0-81.0); PLATELET COUNT (AUTO) 154 K/uL (150-450); RED BLOOD CELL COUNT(AUTO) 3.85 MIL/uL (4.5-6.0); WHITE BLOOD COUNT (AUTO) 5.8 K/uL (4.3-11.0)
[2023-02-02] MEDS: AMLODIPINE BESYLATE 2.5 MG TABLET PO SCH (10:15)
[2023-02-02 10:21] LABS: CALCIUM, SERUM 8.7 mg/dL (8.5-10.1); CREATININE 1.1 mg/dL (0.6-1.3); PHOSPHORUS 3.1 mg/dL (2.5-4.9); POTASSIUM 3.5 mmol/L (3.5-5.1)
[2023-02-02 16:38] VITALS: BP 138/109; TEMP 98.4; O2SAT 98
[2023-02-02] MEDS: HYDROCODONE/APAP 5/325MG TABLET PO PRN (17:35)
[2023-02-02 20:00] VITALS: BP 146/110; TEMP 97.3; O2SAT 98
[2023-02-03] MEDS: MEROPENEM 2 G in IV NS 0.9% 100 ML IV SCH ×3 (01:02→17:11)
[2023-02-03] MEDS: PANTOPRAZOLE 40 MG TABLET.DR PO SCH (07:38)
[2023-02-03] MEDS: AMLODIPINE BESYLATE 2.5 MG TABLET PO SCH (08:08)
[2023-02-03] MEDS: MULTIVIT W/MINERALS 1 TAB TABLET PO SCH (08:08)
[2023-02-03] MEDS: FLUCONAZOLE (100 MG) 100 MG TABLET PO SCH (08:08)
[2023-02-03] MEDS: dexAMETHasone 1 MG TABLET PO SCH (08:09)
[2023-02-03] MEDS: PROSOURCE / PROSTAT (PYXIS) 30 ML UDC PO SCH ×2 (08:09→16:19)
[2023-02-03] MEDS: OLANZAPINE 5 MG TABLET PO SCH ×3 (08:09→16:19)
[2023-02-03] MEDS: LEVETIRACETAM (250 MG) 250 MG TABLET PO SCH ×2 (08:09→16:19)
[2023-02-03] MEDS: ASCORBIC ACID 500 MG TABLET PO SCH (08:09)
[2023-02-03] MEDS: ZINC SULFATE 220 MG CAPSULE PO SCH (08:09)
[2023-02-03] MEDS: POLYETHYLENE GLYCOL 3350 17 GM POWD.PACK PO SCH (08:12)
[2023-02-03 08:24] VITALS: BP 134/100; TEMP 98.1; O2SAT 98
[2023-02-03] MEDS: SULFAMETHOXAZOLE/TRIMETHOPRIM 20 ML in IV D5W 500 ML IV SCH ×2 (08:38→20:13)
[2023-02-03 16:00] VITALS: BP 149/115; TEMP 97.9; O2SAT 97
[2023-02-03] MEDS: HYDROCODONE/APAP 5/325MG TABLET PO PRN (17:19)
[2023-02-03 20:00] VITALS: BP 138/98; TEMP 97.7; O2SAT 95
[2023-02-04] MEDS: MEROPENEM 2 G in IV NS 0.9% 100 ML IV SCH ×3 (00:27→17:35)
[2023-02-04] MEDS: PANTOPRAZOLE 40 MG TABLET.DR PO SCH (07:24)
[2023-02-04] MEDS: SULFAMETHOXAZOLE/TRIMETHOPRIM 20 ML in IV D5W 500 ML IV SCH ×2 (07:53→20:17)
[2023-02-04 08:00] VITALS: BP 141/96; TEMP 98.5; O2SAT 98
[2023-02-04] MEDS: LEVETIRACETAM (250 MG) 250 MG TABLET PO SCH ×2 (08:26→16:22)
[2023-02-04] MEDS: dexAMETHasone 1 MG TABLET PO SCH (08:26)
[2023-02-04] MEDS: ASCORBIC ACID 500 MG TABLET PO SCH (08:26)
[2023-02-04] MEDS: PROSOURCE / PROSTAT (PYXIS) 30 ML UDC PO SCH ×2 (08:26→16:22)
[2023-02-04] MEDS: AMLODIPINE BESYLATE 2.5 MG TABLET PO SCH (08:27)
[2023-02-04] MEDS: ZINC SULFATE 220 MG CAPSULE PO SCH (08:27)
[2023-02-04] MEDS: MULTIVIT W/MINERALS 1 TAB TABLET PO SCH (08:27)
[2023-02-04] MEDS: POLYETHYLENE GLYCOL 3350 17 GM POWD.PACK PO SCH (08:27)
[2023-02-04] MEDS: FLUCONAZOLE (100 MG) 100 MG TABLET PO SCH (08:27)
[2023-02-04] MEDS: OLANZAPINE 5 MG TABLET PO SCH ×3 (08:27→16:21)
[2023-02-04 16:00] VITALS: BP 133/103; TEMP 99.1; O2SAT 97
[2023-02-04 20:00] VITALS: BP_SYST 114; BP_SYST 130; BP_DIAS 80; BP_DIAS 91; TEMP 97.5; TEMP 97.7; O2SAT 96; O2SAT 99
[2023-02-04] MEDS: OLANZAPINE 10 MG TABLET PO SCH (21:09)
[2023-02-05] MEDS: MEROPENEM 2 G in IV NS 0.9% 100 ML IV SCH ×3 (01:19→17:47)
[2023-02-05] MEDS: PANTOPRAZOLE 40 MG TABLET.DR PO SCH (07:27)
[2023-02-05 08:00] VITALS: BP 134/106; TEMP 98.4; O2SAT 99
[2023-02-05] MEDS: MULTIVIT W/MINERALS 1 TAB TABLET PO SCH (08:12)
[2023-02-05] MEDS: FLUCONAZOLE (100 MG) 100 MG TABLET PO SCH (08:12)
[2023-02-05] MEDS: ASCORBIC ACID 500 MG TABLET PO SCH (08:12)
[2023-02-05] MEDS: dexAMETHasone 1 MG TABLET PO SCH (08:12)
[2023-02-05] MEDS: ZINC SULFATE 220 MG CAPSULE PO SCH (08:12)
[2023-02-05] MEDS: LEVETIRACETAM (250 MG) 250 MG TABLET PO SCH ×2 (08:12→16:05)
[2023-02-05] MEDS: OLANZAPINE 5 MG TABLET PO SCH ×3 (08:12→16:05)
[2023-02-05] MEDS: POLYETHYLENE GLYCOL 3350 17 GM POWD.PACK PO SCH (08:13)
[2023-02-05] MEDS: PROSOURCE / PROSTAT (PYXIS) 30 ML UDC PO SCH ×2 (08:13→16:05)
[2023-02-05] MEDS: AMLODIPINE BESYLATE 2.5 MG TABLET PO SCH (08:13)
[2023-02-05] MEDS: SULFAMETHOXAZOLE/TRIMETHOPRIM 20 ML in IV D5W 500 ML IV SCH ×2 (08:14→20:47)
[2023-02-05 08:45] VITALS: BP 145/93
[2023-02-05 18:36] VITALS: BP 128/95; TEMP 97.5; O2SAT 97
[2023-02-05 20:00] VITALS: BP 134/99; TEMP 98.4; O2SAT 97
[2023-02-05] MEDS: OLANZAPINE 10 MG TABLET PO SCH (21:01)
[2023-02-06] MEDS: MEROPENEM 2 G in IV NS 0.9% 100 ML IV SCH ×3 (00:51→16:44)
[2023-02-06 08:00] VITALS: BP 138/101; TEMP 97.9; O2SAT 96
[2023-02-06] MEDS: PANTOPRAZOLE 40 MG TABLET.DR PO SCH (08:02)
[2023-02-06] MEDS: SULFAMETHOXAZOLE/TRIMETHOPRIM 20 ML in IV D5W 500 ML IV SCH (08:30)
[2023-02-06] MEDS: LEVETIRACETAM (250 MG) 250 MG TABLET PO SCH ×2 (09:33→17:16)
[2023-02-06] MEDS: ZINC SULFATE 220 MG CAPSULE PO SCH (09:33)
[2023-02-06] MEDS: MULTIVIT W/MINERALS 1 TAB TABLET PO SCH (09:33)
[2023-02-06] MEDS: POLYETHYLENE GLYCOL 3350 17 GM POWD.PACK PO SCH (09:33)
[2023-02-06] MEDS: ASCORBIC ACID 500 MG TABLET PO SCH (09:33)
[2023-02-06] MEDS: FLUCONAZOLE (100 MG) 100 MG TABLET PO SCH (09:33)
[2023-02-06] MEDS: OLANZAPINE 5 MG TABLET PO SCH ×3 (09:34→17:16)
[2023-02-06] MEDS: PROSOURCE / PROSTAT (PYXIS) 30 ML UDC PO SCH ×2 (09:34→17:16)
[2023-02-06] MEDS: AMLODIPINE BESYLATE 2.5 MG TABLET PO SCH (09:34)
[2023-02-06] MEDS ORDERED: METOPROLOL TARTRATE 25 MG TABLET PO SCH (10:30)
[2023-02-06] MEDS ORDERED: IV NS 0.9% 1,000 ML IV ONE (10:30)
[2023-02-06 11:56] LABS: CALCIUM, SERUM 8.5 mg/dL (8.5-10.1); POTASSIUM 4.1 mmol/L (3.5-5.1)
[2023-02-06] MEDS ORDERED: Magnesium 1GM/D5W 100ML PREMIX 100 ML IV SCH (12:30)
[2023-02-06 16:00] VITALS: BP 113/88; TEMP 98.4; O2SAT 97
[2023-02-10] MEDS ORDERED: DEXA1TAB2 PO (13:29)
[2023-02-10] MEDS ORDERED: Sulfameth/Trimeth 800/160 Mg PO (13:34)
== END 2023-02-06 20:20 | DRG 890 ==
LOC: ER 15:13 → MED 20:21 → TELE 22:05 → MED 01-09 15:16
PROVIDERS: ADMIT Student in an Organized Health Care Education/Training Program; ATTEND Nurse Practitioner Family
PROC: 009U3ZX Drainage of Spinal Canal, Percutaneous Approach, Diagnostic (ICD-10-PCS; principal; 2023-01-11)
PROC: B01BYZZ Fluoroscopy of Spinal Cord using Other Contrast (ICD-10-PCS; 2023-01-11)
PROC: 02HV33Z Insertion of Infusion Device into Superior Vena Cava, Percutaneous Approach (ICD-10-PCS; 2023-01-19)
PROC: B548ZZA Ultrasonography of Superior Vena Cava, Guidance (ICD-10-PCS; 2023-01-19)
DX: B20 Human immunodeficiency virus [HIV] disease (principal); B58.2 Toxoplasma meningoencephalitis; B45.7 Disseminated cryptococcosis; G93.6 Cerebral edema; G06.0 Intracranial abscess and granuloma; G92.8 Other toxic encephalopathy; E22.2 Syndrome of inappropriate secretion of antidiuretic hormone; G93.89 Other specified disorders of brain; E44.1 Mild protein-calorie malnutrition; E87.6 Hypokalemia; Z20.822 Contact with and (suspected) exposure to COVID-19; Z79.899 Other long term (current) drug therapy; Z59.00 Homelessness unspecified; Z98.890 Other specified postprocedural states; F19.10 Other psychoactive substance abuse, uncomplicated; Z86.19 Personal history of other infectious and parasitic diseases; E86.1 Hypovolemia; D64.9 Anemia, unspecified; R29.810 Facial weakness; Z86.61 Personal history of infections of the central nervous system; T38.0X5A Adverse effect of glucocorticoids and synthetic analogues, initial encounter; Y92.9 Unspecified place or not applicable; F32.A Depression, unspecified; I67.89 Other cerebrovascular disease
CPT/HCPCS: 36415; 36569; 62270; 70450-TC; 70470-TC; 70496-TC; 70498-TC; 70553-TC; 71045-TC; 71260-TC; 80048-TC; 80053-TC; 80076-TC; 80202-TC; 82728-TC; 82962-TC; 83615-TC; 83735-TC; 84100-TC; 84300-TC; 84436-TC; 84443-TC; 84484-TC; 84550-TC; 85025-TC; 85652-TC; 85730-TC; 86140-TC; 86360; 86480; 86592; 86593; 86644; 86645; 86664; 86694; 86704; 86706; 86777; 86778; 86803; 87040-TC; 87081-TC; 87086-TC; 87102-TC; 87116; 87206; 87340; 87522; 87536; 87806; 87899; 89051-TC; 92526; 92611-TC; 97110-TC; 97112-TC; 97116-TC; 97530-TC; 97535-TC; A4216; A4223; A9575; G0378; G0480; J0287; J0360; J0692; J1100; J1953; J2060; J2185; J3370; J3475; J3480; J3490; J7030; J7040; J7050; J7060; J8540; Q9967

== ENCOUNTER 2023-02-09 19:25 | Inpatient (IN) | payer MEDICAID, OTHER ==
[~2023-02-09] VITALS: Ht 165.1 cm; Wt 67.6 kg
[~2023-02-09 19:25] MED LIST: DEXA4TAB PO; FLUC100T8 PO; FLUC200T8 PO; LEVE100S PO; SULF1TAB48 PO
[2023-02-09 21:25] VITALS: BP 145/111; TEMP 98.2; O2SAT 97
[2023-02-09] MEDS ORDERED: IV NS 0.9% 1,000 ML BAG IV ONE (21:30)
[2023-02-09] MEDS ORDERED: ACETAMINOPHEN 325 MG TABLET PO ONE (21:30)
[2023-02-09 21:46] LABS: BASOPHILS % (AUTO) 0.5 % (0.0-2.0); EOSINOPHILS # (AUTO) 0.1 K/uL (0.0-0.7); EOSINOPHILS % (AUTO) 1.2 % (0.0-6.0); HEMATOCRIT 36 % (39-51); HEMOGLOBIN 11.7 g/dL (13.5-17.5); LYMPHOCYTES # (AUTO) 2.8 K/uL (0.8-4.8); LYMPHOCYTES % (AUTO) 43.1 % (20.0-44.0); MEAN CORPUSCULAR HEMOGLOBIN 27 PG (26.0-33.0); MEAN CORPUSCULAR HGB CONC 33 g/dl (31.0-36.0); MEAN CORPUSCULAR VOLUME 82 fL (80-96); MONOCYTES # (AUTO) 0.7 K/uL (0.1-1.30); MONOCYTES % (AUTO) 11.3 % (2.0-12.0); NEUTROPHILS # (AUTO) 2.8 K/uL (1.8-8.9); NEUTROPHILS % (AUTO) 43.9 % (43.0-81.0); PLATELET COUNT (AUTO) 221 K/uL (150-450); RED BLOOD CELL COUNT(AUTO) 4.37 MIL/uL (4.5-6.0); RED CELL DISTRIBUTION WIDTH 20.1 % (11.5-15.0); WHITE BLOOD COUNT (AUTO) 6.4 K/uL (4.3-11.0)
[2023-02-09] MEDS ORDERED: BENZOIN COMPOUND TINCT 60 ML BOTTLE ONE (21:48)
[2023-02-09] MEDS ORDERED: ACETAMINOPHEN 325 MG TABLET ONE (21:53)
[2023-02-09 21:54] LABS: CARBON DIOXIDE 25 mmol/L (21-32); CHLORIDE 104 mmol/L (98-107); GLUCOSE 101 mg/dL (74-106); POTASSIUM 3.9 mmol/L (3.5-5.1); SODIUM SERUM 139 mmol/L (136-145); UREA NITROGEN, BLOOD 32 mg/dL (7-18)
[2023-02-09 22:02] LABS: LACTIC ACID 1.5 mmol/L (0.4-2.0)
[2023-02-09 22:05] LABS: PARTIAL THROMBOPLASTIN TIME 32.5 SEC (24.3-34.3); PROTHROMBIN TIME 10.6 SECS (9.2-11.1)
[2023-02-09 22:08] LABS: ALANINE AMINOTRANSFERASE 68 U/L (12-78); ALBUMIN 3.4 g/dL (3.4-5.0); ALKALINE PHOSPHATASE 148 U/L (46-116); ASPARTATE AMINOTRANSFERASE 37 U/L (15-37); BILIRUBIN,DIRECT 0.1 mg/dL (0.0-0.2); BILIRUBIN,TOTAL 0.4 mg/dL (0.2-1.0); TOTAL PROTEIN, SERUM 7.5 g/dL (6.4-8.2)
[2023-02-09 22:23] LABS: BAND % (MANUAL) 1 % (0.0-5.0); EOSINOPHILS % (MANUAL) 2 % (0-4); LYMPHOCYTES % (MANUAL) 39 % (16-48); METAMYELOCYTES % 3 % (0-0); MONOCYTES % (MANUAL) 7 % (0-11.0); MYELOCYTES % 5 % (0-0); NEUTROPHILS % (MANUAL) 43 (42-76); PLATELET ESTIMATE ADEQUATE
[2023-02-09] MEDS ORDERED: ONDANSETRON HCL/PF 4 MG/2 ML VIAL IVP PRN (22:30)
[2023-02-09] MEDS ORDERED: MAGNESIUM HYDROXIDE 30 ML UDC PO PRN (22:30)
[2023-02-09] MEDS ORDERED: TEMAZEPAM 15 MG CAPSULE PO PRN (22:30)
[2023-02-09] MEDS ORDERED: ACETAMINOPHEN 325 MG TABLET PO PRN (22:30)
[2023-02-09] MEDS ORDERED: MAG HYDROX/AL HYDROX/SIMETH 30 ML UDC PO PRN (22:30)
[2023-02-09] MEDS ORDERED: HYDROCODONE/APAP 5/325MG TABLET PO PRN (22:30)
[2023-02-09 22:59] LABS: APPEARANCE,URINE CLEAR (CLEAR); BILIRUBIN,URINE NEGATIVE (NEGATIVE); BLOOD, URINE TRACE-INTA Ery/uL (NEGATIVE); COLOR,URINE YELLOW (YELLOW); KETONES,URINE NEGATIVE (NEGATIVE); LEUKOCYTE ESTERASE ,URINE NEGATIVE (NEGATIVE); NITRITE, URINE NEGATIVE (NEGATIVE); PH,URINE 5.5 (5.0-8.0); PROTEIN,URINE TRACE mg/dl (NEGATIVE); UGLUCOSE NEGATIVE (NEGATIVE); UROBILINOGEN,URINE 0.2 EU/dL (0.2)
[2023-02-09 23:16] LABS: ADD URINE CULTURE NO; BACTERIA,URINE None seen /HPF (None Seen); RBC,URINE 0-2 /HPF (0-2); SQUAMOUS EPITHELIAL CELL,UR 0-2 /HPF (None Seen)
[2023-02-10] MEDS: IV NS 0.9% 1,000 ML IV PRN ×2 (00:11→16:45)
[2023-02-10] MEDS ORDERED: MEROPENEM 1 G VIAL IV ONE (00:31)
[2023-02-10 05:48] LABS: BASOPHILS % (AUTO) 0.5 % (0.0-2.0); EOSINOPHILS # (AUTO) 0.1 K/uL (0.0-0.7); EOSINOPHILS % (AUTO) 1.3 % (0.0-6.0); HEMATOCRIT 31 % (39-51); HEMOGLOBIN 10.2 g/dL (13.5-17.5); LYMPHOCYTES # (AUTO) 1.8 K/uL (0.8-4.8); MEAN CORPUSCULAR HEMOGLOBIN 27 PG (26.0-33.0); MEAN CORPUSCULAR HGB CONC 32 g/dl (31.0-36.0); MEAN CORPUSCULAR VOLUME 82 fL (80-96); MONOCYTES # (AUTO) 0.6 K/uL (0.1-1.30); MONOCYTES % (AUTO) 11.8 % (2.0-12.0); NEUTROPHILS # (AUTO) 2.3 K/uL (1.8-8.9); NEUTROPHILS % (AUTO) 49.4 % (43.0-81.0); PLATELET COUNT (AUTO) 167 K/uL (150-450); RED BLOOD CELL COUNT(AUTO) 3.82 MIL/uL (4.5-6.0); RED CELL DISTRIBUTION WIDTH 19.8 % (11.5-15.0); WHITE BLOOD COUNT (AUTO) 4.7 K/uL (4.3-11.0)
[2023-02-10 06:21] LABS: CALCIUM, SERUM 8.1 mg/dL (8.5-10.1); CREATININE 0.8 mg/dL (0.6-1.3); MAGNESIUM 1.9 mg/dL (1.8-2.4); PHOSPHORUS 4.3 mg/dL (2.5-4.9); POTASSIUM 3.4 mmol/L (3.5-5.1)
[2023-02-10 07:30] VITALS: BP 120/94; TEMP 98.2; O2SAT 97
[2023-02-10] MEDS: PANTOPRAZOLE 40 MG TABLET.DR PO SCH (07:48)
[2023-02-10] MEDS ORDERED: MEROPENEM IV SCH ×3 (08:00)
[2023-02-10] MEDS ORDERED: NS 0.9% IV SCH ×3 (08:00)
[2023-02-10] MEDS ORDERED: OMEP20CA15 PO (08:31)
[2023-02-10] MEDS ORDERED: METO25TA6 PO (08:31)
[2023-02-10] MEDS ORDERED: TRAM50TA2 PO (08:31)
[2023-02-10] MEDS ORDERED: ZINC220T4 PO (08:31)
[2023-02-10] MEDS ORDERED: ASCO-340 PO (08:31)
[2023-02-10] MEDS ORDERED: MERO1VIA23 IV (08:31)
[2023-02-10] MEDS ORDERED: ACET-868 PO (08:31)
[2023-02-10] MEDS ORDERED: HYDR-4209 PO (08:31)
[2023-02-10] MEDS ORDERED: MAG30ORA PO (08:31)
[2023-02-10] MEDS ORDERED: MULT-213 PO (08:31)
[2023-02-10] MEDS ORDERED: OLAN2.5T3 PO (08:31)
[2023-02-10] MEDS ORDERED: MAGN400O6 PO (08:31)
[2023-02-10] MEDS ORDERED: LEVE500T9 PO (08:31)
[2023-02-10] MEDS ORDERED: FLUC200T PO (08:31)
[2023-02-10] MEDS ORDERED: OLAN5TAB3 PO (08:31)
[2023-02-10] MEDS ORDERED: POLY17PO4 PO (08:31)
[2023-02-10] MEDS ORDERED: AMIN30LI2 PO (08:31)
[2023-02-10] MEDS ORDERED: dexAMETHasone 1 MG TABLET PO SCH (09:00)
[2023-02-10] MEDS: SULFAMETH/TRIMETH 800/160 MG 1 UDTAB TABLET PO SCH ×2 (09:43→16:33)
[2023-02-10] MEDS: FLUCONAZOLE (100 MG) 100 MG TABLET PO SCH (09:43)
[2023-02-10] MEDS: LEVETIRACETAM (250 MG) 250 MG TABLET PO SCH ×2 (09:43→16:33)
[2023-02-10] MEDS ORDERED: POTASSIUM CHLORIDE 20 MEQ TAB.PRT.SR PO SCH (10:00)
[2023-02-10] MEDS ORDERED: HYDROCODONE/APAP 5/325MG TABLET PO PRN (10:30)
[2023-02-10] MEDS ORDERED: DEXA1TAB2 PO (13:29)
[2023-02-10] MEDS ORDERED: Sulfameth/Trimeth 800/160 Mg PO (13:34)
[2023-02-10 16:00] VITALS: BP 133/97; TEMP 98.1; O2SAT 98
[2023-02-10] MEDS: MEROPENEM IV SCH ×2 (16:45→23:53)
[2023-02-10] MEDS: NS 0.9% IV SCH ×2 (16:45→23:53)
[2023-02-10 20:00] VITALS: BP 129/95; TEMP 98.6; O2SAT 98
[2023-02-10] MEDS: OLANZAPINE 5 MG TABLET PO SCH (21:23)
[2023-02-10] MEDS: METOPROLOL TARTRATE 25 MG TABLET PO SCH (21:23)
[2023-02-11 07:00] VITALS: BP 130/100; TEMP 97.3; O2SAT 98
[2023-02-11] MEDS: PANTOPRAZOLE 40 MG TABLET.DR PO SCH (07:33)
[2023-02-11] MEDS: METOPROLOL TARTRATE 25 MG TABLET PO SCH ×2 (08:11→21:02)
[2023-02-11] MEDS: FLUCONAZOLE (100 MG) 100 MG TABLET PO SCH (08:11)
[2023-02-11] MEDS: SULFAMETH/TRIMETH 800/160 MG 1 UDTAB TABLET PO SCH ×2 (08:11→16:47)
[2023-02-11] MEDS: LEVETIRACETAM (250 MG) 250 MG TABLET PO SCH ×2 (08:11→16:47)
[2023-02-11] MEDS: MEROPENEM IV SCH ×2 (08:14→17:22)
[2023-02-11] MEDS: NS 0.9% IV SCH ×2 (08:14→17:22)
[2023-02-11 16:00] VITALS: BP 139/99; TEMP 97.2; O2SAT 97
[2023-02-11 20:00] VITALS: BP_SYST 123; BP_SYST 138; BP_DIAS 89; BP_DIAS 95; TEMP 98.1; TEMP 98.4; O2SAT 95; O2SAT 97
[2023-02-11] MEDS: OLANZAPINE 5 MG TABLET PO SCH (21:02)
[2023-02-12] MEDS: NS 0.9% IV SCH ×4 (00:32→23:17)
[2023-02-12] MEDS: MEROPENEM IV SCH ×4 (00:32→23:17)
[2023-02-12] MEDS: IV NS 0.9% 1,000 ML IV PRN (05:09)
[2023-02-12 08:00] VITALS: BP 129/102; TEMP 98.6; O2SAT 98
[2023-02-12] MEDS: FLUCONAZOLE (100 MG) 100 MG TABLET PO SCH (09:27)
[2023-02-12] MEDS: SULFAMETH/TRIMETH 800/160 MG 1 UDTAB TABLET PO SCH ×2 (09:27→18:22)
[2023-02-12] MEDS: METOPROLOL TARTRATE 25 MG TABLET PO SCH ×2 (09:27→21:04)
[2023-02-12] MEDS: LEVETIRACETAM (250 MG) 250 MG TABLET PO SCH ×2 (09:28→18:21)
[2023-02-12] MEDS: PANTOPRAZOLE 40 MG TABLET.DR PO SCH (09:28)
[2023-02-12] MEDS: PROSOURCE / PROSTAT (PYXIS) 30 ML UDC PO SCH ×2 (13:00→18:21)
[2023-02-12 16:01] VITALS: BP 128/98; TEMP 97.5; O2SAT 98
[2023-02-12] MEDS: ARGININE/GLUTAMINE/CALCIUM BMB 1 EACH POWD.PACK PO SCH (18:22)
[2023-02-12 20:00] VITALS: BP 129/96; TEMP 97.7; O2SAT 96
[2023-02-12] MEDS: OLANZAPINE 5 MG TABLET PO SCH (21:04)
[2023-02-13] MEDS: IV NS 0.9% 1,000 ML IV PRN (05:05)
[2023-02-13 08:00] VITALS: BP 140/110; TEMP 97.5; O2SAT 98
[2023-02-13] MEDS: MEROPENEM IV SCH ×3 (08:47→23:40)
[2023-02-13] MEDS: NS 0.9% IV SCH ×3 (08:47→23:40)
[2023-02-13] MEDS: PANTOPRAZOLE 40 MG TABLET.DR PO SCH (08:47)
[2023-02-13] MEDS: PROSOURCE / PROSTAT (PYXIS) 30 ML UDC PO SCH ×3 (08:48→16:56)
[2023-02-13] MEDS: SULFAMETH/TRIMETH 800/160 MG 1 UDTAB TABLET PO SCH ×2 (08:48→16:56)
[2023-02-13] MEDS: METOPROLOL TARTRATE 25 MG TABLET PO SCH ×2 (08:48→20:29)
[2023-02-13] MEDS: LEVETIRACETAM (250 MG) 250 MG TABLET PO SCH ×2 (08:48→16:56)
[2023-02-13] MEDS: ZINC SULFATE 220 MG CAPSULE PO SCH (08:48)
[2023-02-13] MEDS: ASCORBIC ACID 500 MG TABLET PO SCH (08:48)
[2023-02-13] MEDS: MULTIVIT W/MINERALS 1 TAB TABLET PO SCH (08:48)
[2023-02-13] MEDS: ARGININE/GLUTAMINE/CALCIUM BMB 1 EACH POWD.PACK PO SCH ×2 (08:48→16:56)
[2023-02-13] MEDS: FLUCONAZOLE (100 MG) 100 MG TABLET PO SCH (08:49)
[2023-02-13 16:00] VITALS: BP 122/98; TEMP 97.7; O2SAT 98
[2023-02-13 20:00] VITALS: BP 133/96; TEMP 98.4; O2SAT 98
[2023-02-13] MEDS: OLANZAPINE 5 MG TABLET PO SCH (21:06)
[2023-02-14] MEDS: IV NS 0.9% 1,000 ML IV PRN (04:01)
[2023-02-14 06:36] LABS: BASOPHILS % (AUTO) 0.7 % (0.0-2.0); EOSINOPHILS # (AUTO) 0.1 K/uL (0.0-0.7); EOSINOPHILS % (AUTO) 1.1 % (0.0-6.0); HEMATOCRIT 33 % (39-51); HEMOGLOBIN 10.7 g/dL (13.5-17.5); LYMPHOCYTES # (AUTO) 2.2 K/uL (0.8-4.8); LYMPHOCYTES % (AUTO) 39.9 % (20.0-44.0); MEAN CORPUSCULAR HEMOGLOBIN 27 PG (26.0-33.0); MEAN CORPUSCULAR HGB CONC 33 g/dl (31.0-36.0); MEAN CORPUSCULAR VOLUME 82 fL (80-96); MONOCYTES # (AUTO) 0.7 K/uL (0.1-1.30); MONOCYTES % (AUTO) 12.3 % (2.0-12.0); NEUTROPHILS # (AUTO) 2.6 K/uL (1.8-8.9); PLATELET COUNT (AUTO) 202 K/uL (150-450); RED BLOOD CELL COUNT(AUTO) 3.98 MIL/uL (4.5-6.0); RED CELL DISTRIBUTION WIDTH 19.5 % (11.5-15.0); WHITE BLOOD COUNT (AUTO) 5.6 K/uL (4.3-11.0)
[2023-02-14 06:56] LABS: CALCIUM, SERUM 8.4 mg/dL (8.5-10.1); PHOSPHORUS 2.6 mg/dL (2.5-4.9); POTASSIUM 3.4 mmol/L (3.5-5.1)
[2023-02-14] MEDS: PANTOPRAZOLE 40 MG TABLET.DR PO SCH (08:18)
[2023-02-14] MEDS: SULFAMETH/TRIMETH 800/160 MG 1 UDTAB TABLET PO SCH ×2 (08:18→17:37)
[2023-02-14] MEDS: MEROPENEM IV SCH ×3 (08:18→23:31)
[2023-02-14] MEDS: NS 0.9% IV SCH ×3 (08:18→23:31)
[2023-02-14] MEDS: PROSOURCE / PROSTAT (PYXIS) 30 ML UDC PO SCH ×3 (08:19→17:37)
[2023-02-14] MEDS: METOPROLOL TARTRATE 25 MG TABLET PO SCH ×2 (08:19→21:22)
[2023-02-14] MEDS: LEVETIRACETAM (250 MG) 250 MG TABLET PO SCH ×2 (08:19→17:37)
[2023-02-14] MEDS: ARGININE/GLUTAMINE/CALCIUM BMB 1 EACH POWD.PACK PO SCH ×3 (08:19→17:37)
[2023-02-14] MEDS: MULTIVIT W/MINERALS 1 TAB TABLET PO SCH (08:19)
[2023-02-14] MEDS: FLUCONAZOLE (100 MG) 100 MG TABLET PO SCH (08:19)
[2023-02-14] MEDS: ZINC SULFATE 220 MG CAPSULE PO SCH (08:20)
[2023-02-14] MEDS: ASCORBIC ACID 500 MG TABLET PO SCH (08:20)
[2023-02-14 08:21] LABS: BAND % (MANUAL) 8 % (0.0-5.0); LYMPHOCYTES % (MANUAL) 38 % (16-48); MONOCYTES % (MANUAL) 11 % (0-11.0); MYELOCYTES % 8 % (0-0); NEUTROPHILS % (MANUAL) 35 (42-76)
[2023-02-14 08:22] LABS: ANISOCYTOSIS 1+; PLATELET ESTIMATE ADEQUATE
[2023-02-14 08:42] VITALS: BP 135/106; TEMP 97.5; O2SAT 98
[2023-02-14] MEDS ORDERED: POTASSIUM CHLORIDE 20 MEQ TAB.PRT.SR PO ONE ×2 (09:00→12:30)
[2023-02-14 16:06] VITALS: BP 122/97; TEMP 98.5; O2SAT 99
[2023-02-14 20:00] VITALS: BP 129/95; TEMP 98.2; O2SAT 96
[2023-02-14] MEDS: OLANZAPINE 5 MG TABLET PO SCH (21:21)
[2023-02-15 06:45] LABS: CALCIUM, SERUM 8.1 mg/dL (8.5-10.1); CREATININE 0.9 mg/dL (0.6-1.3); POTASSIUM 3.5 mmol/L (3.5-5.1)
[2023-02-15] MEDS: NS 0.9% IV SCH ×3 (07:50→23:30)
[2023-02-15] MEDS: MEROPENEM IV SCH ×3 (07:50→23:30)
[2023-02-15 08:00] VITALS: BP 129/103; TEMP 98.4; O2SAT 99
[2023-02-15] MEDS: SULFAMETH/TRIMETH 800/160 MG 1 UDTAB TABLET PO SCH ×2 (08:45→18:10)
[2023-02-15] MEDS: ZINC SULFATE 220 MG CAPSULE PO SCH (08:45)
[2023-02-15] MEDS: PANTOPRAZOLE 40 MG TABLET.DR PO SCH (08:45)
[2023-02-15] MEDS: FLUCONAZOLE (100 MG) 100 MG TABLET PO SCH (08:45)
[2023-02-15] MEDS: MULTIVIT W/MINERALS 1 TAB TABLET PO SCH (08:45)
[2023-02-15] MEDS: ASCORBIC ACID 500 MG TABLET PO SCH (08:45)
[2023-02-15] MEDS: METOPROLOL TARTRATE 25 MG TABLET PO SCH ×2 (08:46→22:26)
[2023-02-15] MEDS: LEVETIRACETAM (250 MG) 250 MG TABLET PO SCH ×2 (08:46→18:10)
[2023-02-15] MEDS: PROSOURCE / PROSTAT (PYXIS) 30 ML UDC PO SCH ×3 (08:48→18:10)
[2023-02-15] MEDS: ARGININE/GLUTAMINE/CALCIUM BMB 1 EACH POWD.PACK PO SCH ×2 (09:00→17:00)
[2023-02-15 16:00] VITALS: BP 123/99; TEMP 97.5; O2SAT 98
[2023-02-15 20:05] VITALS: BP 128/93; TEMP 98.2; O2SAT 97
[2023-02-15] MEDS: OLANZAPINE 5 MG TABLET PO SCH (22:24)
[2023-02-15] MEDS: IV NS 0.9% 1,000 ML IV PRN (23:31)
[2023-02-16 05:59] LABS: BASOPHILS % (AUTO) 0.7 % (0.0-2.0); EOSINOPHILS % (AUTO) 0.8 % (0.0-6.0); HEMATOCRIT 31 % (39-51); HEMOGLOBIN 10.5 g/dL (13.5-17.5); LYMPHOCYTES # (AUTO) 2.5 K/uL (0.8-4.8); LYMPHOCYTES % (AUTO) 40.5 % (20.0-44.0); MEAN CORPUSCULAR HEMOGLOBIN 28 PG (26.0-33.0); MEAN CORPUSCULAR HGB CONC 34 g/dl (31.0-36.0); MEAN CORPUSCULAR VOLUME 81 fL (80-96); MONOCYTES # (AUTO) 0.5 K/uL (0.1-1.30); MONOCYTES % (AUTO) 8.3 % (2.0-12.0); NEUTROPHILS # (AUTO) 3.1 K/uL (1.8-8.9); NEUTROPHILS % (AUTO) 49.7 % (43.0-81.0); PLATELET COUNT (AUTO) 185 K/uL (150-450); RED BLOOD CELL COUNT(AUTO) 3.82 MIL/uL (4.5-6.0); RED CELL DISTRIBUTION WIDTH 19.2 % (11.5-15.0); WHITE BLOOD COUNT (AUTO) 6.3 K/uL (4.3-11.0)
[2023-02-16 06:40] LABS: CALCIUM, SERUM 8.4 mg/dL (8.5-10.1); MAGNESIUM 2.1 mg/dL (1.8-2.4); PHOSPHORUS 2.2 mg/dL (2.5-4.9); POTASSIUM 3.6 mmol/L (3.5-5.1)
[2023-02-16 07:00] VITALS: BP 134/96; TEMP 98.1; O2SAT 98
[2023-02-16] MEDS: PANTOPRAZOLE 40 MG TABLET.DR PO SCH (07:38)
[2023-02-16] MEDS: MEROPENEM IV SCH ×2 (08:21→15:50)
[2023-02-16] MEDS: NS 0.9% IV SCH ×2 (08:21→15:50)
[2023-02-16] MEDS: ZINC SULFATE 220 MG CAPSULE PO SCH (08:45)
[2023-02-16] MEDS: SULFAMETH/TRIMETH 800/160 MG 1 UDTAB TABLET PO SCH ×2 (08:46→16:15)
[2023-02-16] MEDS: ASCORBIC ACID 500 MG TABLET PO SCH (08:46)
[2023-02-16] MEDS: FLUCONAZOLE (100 MG) 100 MG TABLET PO SCH (08:46)
[2023-02-16] MEDS: LEVETIRACETAM (250 MG) 250 MG TABLET PO SCH ×2 (08:46→16:15)
[2023-02-16] MEDS: MULTIVIT W/MINERALS 1 TAB TABLET PO SCH (08:46)
[2023-02-16] MEDS: METOPROLOL TARTRATE 25 MG TABLET PO SCH (08:47)
[2023-02-16] MEDS: ARGININE/GLUTAMINE/CALCIUM BMB 1 EACH POWD.PACK PO SCH ×2 (09:00→16:15)
[2023-02-16] MEDS: PROSOURCE / PROSTAT (PYXIS) 30 ML UDC PO SCH ×3 (09:02→16:15)
[2023-02-16 16:00] VITALS: BP 130/90; TEMP 98.2; O2SAT 98
[2023-02-16] MEDS ORDERED: K PHOS NEUTRAL 250 MG TABLET PO ONE (16:00)
== END 2023-02-16 18:40 | DRG 892 ==
LOC: ER 19:29 → MED 23:05
PROVIDERS: ADMIT Nurse Practitioner Acute Care; ATTEND Student in an Organized Health Care Education/Training Program
DX: B20 Human immunodeficiency virus [HIV] disease (principal); B45.1 Cerebral cryptococcosis; B58.2 Toxoplasma meningoencephalitis; N17.0 Acute kidney failure with tubular necrosis; G06.0 Intracranial abscess and granuloma; D63.8 Anemia in other chronic diseases classified elsewhere; E86.0 Dehydration; Z91.199 Patient's noncompliance with other medical treatment and regimen due to unspecified reason; Z79.899 Other long term (current) drug therapy; Z86.61 Personal history of infections of the central nervous system; E87.6 Hypokalemia; D64.9 Anemia, unspecified; F19.11 Other psychoactive substance abuse, in remission
CPT/HCPCS: 36415; 71045-TC; 80048-TC; 80076-TC; 81001; 83605-TC; 83735-TC; 84100-TC; 84484-TC; 85025-TC; 85730-TC; 87040-TC; 87086-TC; 97116-TC; A4223; A6253; G0378; J2185; J7030; J8540

== ENCOUNTER 2023-03-22 07:17 | Inpatient (IN) | payer MEDICAID, OTHER ==
[~2023-03-22] VITALS: Ht 172.7 cm; Wt 79.6 kg
[~2023-03-22 07:17] MED LIST changes: +ACET-868 PO; +AMIN30LI2 PO; +ASCO-340 PO; -DEXA4TAB PO; -FLUC100T8 PO; +FLUC200T PO; -FLUC200T8 PO; +HYDR-4209 PO; -LEVE100S PO; +LEVE500T9 PO; +MAG30ORA PO; +MAGN400O6 PO; +MERO1VIA23 IV; +METO25TA6 PO; +MULT-213 PO; +OLAN2.5T3 PO; +OLAN5TAB3 PO; +OMEP20CA15 PO; +POLY17PO4 PO; -SULF1TAB48 PO; +Sulfameth/Trimeth 800/160 Mg PO; +TRAM50TA2 PO; +ZINC220T4 PO
[2023-03-22] MEDS ORDERED: IV NS 0.9% 1,000 ML BAG IV ONE (08:00)
[2023-03-22] MEDS ORDERED: METOCLOPRAMIDE HCL 10 MG/2 ML VIAL IV ONE (08:00)
[2023-03-22] MEDS ORDERED: ACETAMINOPHEN ES 500 MG TABLET PO ONE (08:00)
[2023-03-22] MEDS ORDERED: diphenhydrAMINE HCL 50 MG/ML VIAL IV ONE (08:00)
[2023-03-22] MEDS ORDERED: diphenhydrAMINE HCL 50 MG/ML VIAL ONE (08:15)
[2023-03-22] MEDS ORDERED: ACETAMINOPHEN ES 500 MG TABLET ONE (08:16)
[2023-03-22] MEDS ORDERED: METOCLOPRAMIDE HCL 10 MG/2 ML VIAL ONE (08:16)
[2023-03-22 08:28] LABS: BASOPHILS % (AUTO) 0.3 % (0.0-2.0); EOSINOPHILS % (AUTO) 0.7 % (0.0-6.0); HEMATOCRIT 29 % (39-51); HEMOGLOBIN 9.7 g/dL (13.5-17.5); LYMPHOCYTES # (AUTO) 1.8 K/uL (0.8-4.8); LYMPHOCYTES % (AUTO) 35.4 % (20.0-44.0); MEAN CORPUSCULAR HEMOGLOBIN 27 PG (26.0-33.0); MEAN CORPUSCULAR HGB CONC 33 g/dl (31.0-36.0); MEAN CORPUSCULAR VOLUME 81 fL (80-96); MONOCYTES # (AUTO) 0.8 K/uL (0.1-1.30); MONOCYTES % (AUTO) 14.5 % (2.0-12.0); NEUTROPHILS # (AUTO) 2.6 K/uL (1.8-8.9); NEUTROPHILS % (AUTO) 49.1 % (43.0-81.0); PLATELET COUNT (AUTO) 139 K/uL (150-450); RED BLOOD CELL COUNT(AUTO) 3.59 MIL/uL (4.5-6.0); RED CELL DISTRIBUTION WIDTH 16.8 % (11.5-15.0); WHITE BLOOD COUNT (AUTO) 5.2 K/uL (4.3-11.0)
[2023-03-22 08:41] LABS: ALANINE AMINOTRANSFERASE 23 U/L (12-78); ALBUMIN 3.5 g/dL (3.4-5.0); ALKALINE PHOSPHATASE 75 U/L (46-116); ASPARTATE AMINOTRANSFERASE 18 U/L (15-37); BILIRUBIN,DIRECT 0.1 mg/dL (0.0-0.2); BILIRUBIN,TOTAL 0.5 mg/dL (0.2-1.0); CALCIUM, SERUM 8.4 mg/dL (8.5-10.1); CARBON DIOXIDE 24 mmol/L (21-32); CHLORIDE 105 mmol/L (98-107); GLUCOSE 112 mg/dL (74-106); SODIUM SERUM 141 mmol/L (136-145); TOTAL PROTEIN, SERUM 6.9 g/dL (6.4-8.2); UREA NITROGEN, BLOOD 17 mg/dL (7-18)
[2023-03-22 08:47] LABS: POTASSIUM 2.7 mmol/L (3.5-5.1)
[2023-03-22] MEDS ORDERED: POTASSIUM CHLORIDE 20 MEQ POWDER PACKET PO ONE (09:00)
[2023-03-22] MEDS ORDERED: POTASSIUM CHLORIDE 20 MEQ POWDER PACKET ONE (09:02)
[2023-03-22] MEDS ORDERED: MAGNESIUM HYDROXIDE 30 ML UDC PO PRN (11:00)
[2023-03-22] MEDS ORDERED: IV NS 0.9% 1,000 ML IV PRN (11:00)
[2023-03-22] MEDS ORDERED: HYDROCODONE/APAP 10/325MG TABLET PO PRN (11:00)
[2023-03-22] MEDS ORDERED: ONDANSETRON HCL/PF 4 MG/2 ML VIAL IVP PRN (11:00)
[2023-03-22] MEDS ORDERED: HYDROCODONE/APAP 5/325MG TABLET PO PRN (11:00)
[2023-03-22] MEDS ORDERED: TEMAZEPAM 15 MG CAPSULE PO PRN (11:00)
[2023-03-22] MEDS ORDERED: LORAZEPAM INJ 2 MG/ML VIAL IV PRN (11:00)
[2023-03-22] MEDS ORDERED: Z GUARD REMEDY 4 OZ OINT TP PRN (11:00)
[2023-03-22] MEDS ORDERED: MAG HYDROX/AL HYDROX/SIMETH 30 ML UDC PO PRN (11:00)
[2023-03-22 11:03] LABS: APPEARANCE,URINE CLEAR (CLEAR); BILIRUBIN,URINE NEGATIVE (NEGATIVE); BLOOD, URINE NEGATIVE Ery/uL (NEGATIVE); COLOR,URINE YELLOW (YELLOW); KETONES,URINE NEGATIVE (NEGATIVE); LEUKOCYTE ESTERASE ,URINE NEGATIVE (NEGATIVE); NITRITE, URINE NEGATIVE (NEGATIVE); PROTEIN,URINE NEGATIVE (NEGATIVE); UGLUCOSE NEGATIVE (NEGATIVE); UROBILINOGEN,URINE 0.2 EU/dL (0.2)
[2023-03-22] MEDS: LEVETIRACETAM (250 MG) 250 MG TABLET PO SCH ×2 (11:40→20:36)
[2023-03-22 12:00] VITALS: BP 141/102; TEMP 98.2; O2SAT 98
[2023-03-22] MEDS ORDERED: LEVETIRACETAM (500MG) 1,000 MG in IV NS 0.9% 90 ML IV ONE (16:00)
[2023-03-22] MEDS: ACETAMINOPHEN 325 MG TABLET PO PRN (17:26)
[2023-03-22 20:00] VITALS: BP 143/98; TEMP 99.1; O2SAT 92
[2023-03-22] MEDS ORDERED: FLUCONAZOLE IV SCH ×2 (20:00)
[2023-03-22] MEDS ORDERED: AZITHROMYCIN 250 MG TABLET PO SCH (20:00)
[2023-03-22] MEDS ORDERED: NS IV SCH ×2 (20:00)
[2023-03-22 20:02] LABS: AMPHETAMINE, URINE NEGATIVE (NEGATIVE); BARBITURATE, URINE NEGATIVE (NEGATIVE); BENZODIAZEPINE, URINE NEGATIVE (NEGATIVE); CANNABINOID, URINE NEGATIVE (NEGATIVE); COCCAINE, URINE NEGATIVE (NEGATIVE); OPIATE, URINE NEGATIVE (NEGATIVE); PHENCYCLIDINE SCREEN,URINE NEGATIVE (NEGATIVE)
[2023-03-22] MEDS: METOPROLOL TARTRATE 50 MG TABLET PO SCH (20:37)
[2023-03-22] MEDS: AZITHROMYCIN 250 MG TABLET PO SCH (20:38)
[2023-03-22] MEDS: FLUCONAZOLE IN NS,PREMIX 400 MG in PREMIX 1 EA IV SCH ×2 (20:55)
[2023-03-22] MEDS: ACYCLOVIR IV 500 MG in IV D5W 100 ML IV SCH (21:39)
[2023-03-22] MEDS: SULFAMETHOXAZOLE/TRIMETHOPRIM 25 ML in IV D5W 500 ML IV SCH (22:01)
[2023-03-22] MEDS: OLANZAPINE 5 MG TABLET PO SCH (22:10)
[2023-03-23 04:00] VITALS: BP 150/97; TEMP 98.9; O2SAT 99
[2023-03-23] MEDS: ACYCLOVIR IV 500 MG in IV D5W 100 ML IV SCH ×3 (04:39→21:59)
[2023-03-23] MEDS: FLUCONAZOLE IN NS,PREMIX 400 MG in PREMIX 1 EA IV SCH ×6 (05:34→22:37)
[2023-03-23 06:43] LABS: CALCIUM, SERUM 8.1 mg/dL (8.5-10.1); PHOSPHORUS 2.9 mg/dL (2.5-4.9)
[2023-03-23 06:48] LABS: BASOPHILS % (AUTO) 0.5 % (0.0-2.0); EOSINOPHILS % (AUTO) 0.2 % (0.0-6.0); HEMATOCRIT 28 % (39-51); HEMOGLOBIN 9.4 g/dL (13.5-17.5); LYMPHOCYTES # (AUTO) 3.3 K/uL (0.8-4.8); LYMPHOCYTES % (AUTO) 47.4 % (20.0-44.0); MEAN CORPUSCULAR HEMOGLOBIN 27 PG (26.0-33.0); MEAN CORPUSCULAR HGB CONC 33 g/dl (31.0-36.0); MEAN CORPUSCULAR VOLUME 82 fL (80-96); MONOCYTES % (AUTO) 14.1 % (2.0-12.0); NEUTROPHILS # (AUTO) 2.6 K/uL (1.8-8.9); NEUTROPHILS % (AUTO) 37.8 % (43.0-81.0); PLATELET COUNT (AUTO) 131 K/uL (150-450); RED BLOOD CELL COUNT(AUTO) 3.45 MIL/uL (4.5-6.0); RED CELL DISTRIBUTION WIDTH 16.1 % (11.5-15.0); WHITE BLOOD COUNT (AUTO) 6.9 K/uL (4.3-11.0)
[2023-03-23] MEDS: PANTOPRAZOLE 40 MG TABLET.DR PO SCH (08:18)
[2023-03-23] MEDS: ZINC SULFATE 220 MG CAPSULE PO SCH (09:00)
[2023-03-23] MEDS: LEVETIRACETAM (250 MG) 250 MG TABLET PO SCH (09:00)
[2023-03-23] MEDS ORDERED: FLUCONAZOLE (100 MG) 100 MG TABLET PO SCH (09:00)
[2023-03-23] MEDS: MULTIVITAMINS,THERAGRAN 1 UDTAB TABLET PO SCH (09:00)
[2023-03-23] MEDS: METOPROLOL TARTRATE 50 MG TABLET PO SCH ×3 (09:00→21:10)
[2023-03-23] MEDS: SULFAMETHOXAZOLE/TRIMETHOPRIM 25 ML in IV D5W 500 ML IV SCH (10:11)
[2023-03-23] MEDS ORDERED: POTASSIUM CHLORIDE 20 MEQ POWDER PACKET PO ONE (11:00)
[2023-03-23 12:00] VITALS: BP 106/67; TEMP 98; O2SAT 95
[2023-03-23] MEDS ORDERED: POTASSIUM CHLORIDE 10 MEQ/50 ML PREMIXED IVPB FOR PERIPHERAL LINE IV ONE ×4 (12:00→15:00)
[2023-03-23 16:00] VITALS: BP 110/80; TEMP 98.2; O2SAT 99
[2023-03-23] MEDS: LEVETIRACETAM (500MG) 500 MG in IV NS 0.9% 100 ML IV SCH ×2 (16:49→21:10)
[2023-03-23] MEDS: POTASSIUM CL. PREMIX PERIPHER. 50 ML IV SCH ×2 (18:28→21:37)
[2023-03-23] MEDS: ACETAMINOPHEN 325 MG TABLET PO PRN (19:51)
[2023-03-23 20:00] VITALS: BP 160/100; TEMP 101.9; O2SAT 97
[2023-03-23] MEDS: MEROPENEM 500 MG in IV NS 0.9% 50 ML IV SCH (21:40)
[2023-03-23] MEDS: OLANZAPINE 5 MG TABLET PO SCH (22:00)
[2023-03-23 22:30] VITALS: BP 133/95; TEMP 99.7; O2SAT 98
[2023-03-24] VITALS: BP 134/81; TEMP 99.3; O2SAT 98
[2023-03-24] MEDS: SULFAMETHOXAZOLE/TRIMETHOPRIM 25 ML in IV D5W 500 ML IV SCH ×3 (00:01→21:37)
[2023-03-24] MEDS: IV D5/0.45 NACL 1,000 ML IV PRN (00:59)
[2023-03-24] MEDS ORDERED: IV D5/0.45 NACL 1,000 ML IV PRN (01:00)
[2023-03-24 01:06] LABS: *BASOS 0 % (Not Estab.); *EOS 0 % (Not Estab.); *HCT 31.1 % (37.5-51.0); *IMMATURE GRANULOCYTES 0 % (Not Estab.); *LYMPHOCYTES 35 % (Not Estab.); *LYMPHS, ABSOLUTE 1.8 x10E3/uL (0.7-3.1); *MCHC 32.2 g/dL (31.5-35.7); *MCV 84 fL (79-97); *MONOCYTES 11 % (Not Estab.); *MONOS, ABSOLUTE 0.6 x10E3/uL (0.1-0.9); *NEUTROPHILS 54 % (Not Estab.); *NEUTROPHILS, ABSOLUTE 2.9 x10E3/uL (1.4-7.0); *PLT 143 x10E3/uL (150-450); *RDW 15.7 % (11.6-15.4); *WBC 5.3 x10E3/uL (3.4-10.8)
[2023-03-24 04:00] VITALS: BP 144/85; TEMP 98.9; O2SAT 97
[2023-03-24] MEDS: MEROPENEM 500 MG in IV NS 0.9% 50 ML IV SCH ×3 (04:11→21:31)
[2023-03-24] MEDS: ACYCLOVIR IV 500 MG in IV D5W 100 ML IV SCH ×3 (05:05→22:19)
[2023-03-24] MEDS: FLUCONAZOLE IN NS,PREMIX 400 MG in PREMIX 1 EA IV SCH ×6 (05:53→21:11)
[2023-03-24 07:01] LABS: CALCIUM, SERUM 8.4 mg/dL (8.5-10.1); CREATININE 1.1 mg/dL (0.6-1.3); POTASSIUM 3.4 mmol/L (3.5-5.1)
[2023-03-24 08:00] VITALS: BP 151/95; TEMP 102.3; O2SAT 97
[2023-03-24] MEDS: PANTOPRAZOLE 40 MG TABLET.DR PO SCH (08:15)
[2023-03-24] MEDS: LEVETIRACETAM (500MG) 500 MG in IV NS 0.9% 100 ML IV SCH ×2 (08:15→20:41)
[2023-03-24] MEDS: ACETAMINOPHEN 325 MG TABLET PO PRN ×2 (08:16→19:00)
[2023-03-24] MEDS: METOPROLOL TARTRATE 50 MG TABLET PO SCH ×2 (08:16→21:31)
[2023-03-24] MEDS: ZINC SULFATE 220 MG CAPSULE PO SCH (08:16)
[2023-03-24] MEDS: MULTIVITAMINS,THERAGRAN 1 UDTAB TABLET PO SCH (08:16)
[2023-03-24] MEDS ORDERED: POTASSIUM CHLORIDE 20 MEQ TAB.PRT.SR PO SCH (11:30)
[2023-03-24 12:00] VITALS: BP 124/78; TEMP 98.7; O2SAT 98
[2023-03-24 12:07] LABS: *% CD 4 POS. LYMPH 0.9 % (30.8-58.5); *% CD 8 POS. LYMPH 90.1 % (12.0-35.5); *ABSOLUTE CD 4 HELPER 16 /uL (359-1519); *ABSOLUTE CD 8 SUPPRESSOR 1622 /uL (109-897); *CD4/CD8 RATIO 0.01 (0.92-3.72)
[2023-03-24 16:00] VITALS: BP 138/105; TEMP 99.9; O2SAT 98
[2023-03-24 20:00] VITALS: BP 150/97; TEMP 100.1; O2SAT 95
[2023-03-24] MEDS: OLANZAPINE 5 MG TABLET PO SCH (21:30)
[2023-03-24 22:06] LABS: *HSV 1 DNA PCR Negative (Negative); *HSV 2 DNA PCR Negative (Negative)
[2023-03-25 04:00] VITALS: BP 140/106; TEMP 98; O2SAT 96
[2023-03-25] MEDS: FLUCONAZOLE IN NS,PREMIX 400 MG in PREMIX 1 EA IV SCH ×6 (04:45→22:37)
[2023-03-25] MEDS: MEROPENEM 500 MG in IV NS 0.9% 50 ML IV SCH ×3 (04:45→21:40)
[2023-03-25] MEDS: ACYCLOVIR IV 500 MG in IV D5W 100 ML IV SCH ×3 (06:38→22:37)
[2023-03-25] MEDS: IV D5/0.45 NACL 1,000 ML IV PRN (06:41)
[2023-03-25 08:00] VITALS: BP 137/95; TEMP 98.5; O2SAT 96
[2023-03-25] MEDS: MULTIVITAMINS,THERAGRAN 1 UDTAB TABLET PO SCH (08:25)
[2023-03-25] MEDS: PANTOPRAZOLE 40 MG TABLET.DR PO SCH (08:25)
[2023-03-25] MEDS: ZINC SULFATE 220 MG CAPSULE PO SCH (08:25)
[2023-03-25] MEDS: METOPROLOL TARTRATE 50 MG TABLET PO SCH ×2 (08:25→21:58)
[2023-03-25] MEDS: LEVETIRACETAM (500MG) 500 MG in IV NS 0.9% 100 ML IV SCH ×2 (08:25→21:40)
[2023-03-25] MEDS: SULFAMETHOXAZOLE/TRIMETHOPRIM 25 ML in IV D5W 500 ML IV SCH ×2 (09:40→23:53)
[2023-03-25] MEDS ORDERED: GADOTERATE MEGLUMINE 10 MMOL/20 ML VIAL IV ONE (13:23)
[2023-03-25 16:00] VITALS: BP 147/102; TEMP 98.4; O2SAT 95
[2023-03-25] MEDS: dexAMETHasone 1 MG/ML UDC PO SCH (21:36)
[2023-03-25] MEDS: OLANZAPINE 5 MG TABLET PO SCH (21:58)
[2023-03-26] VITALS: BP 147/111; TEMP 98.4; O2SAT 99
[2023-03-26] MEDS: MEROPENEM 500 MG in IV NS 0.9% 50 ML IV SCH ×3 (04:05→21:29)
[2023-03-26] MEDS: ACYCLOVIR IV 500 MG in IV D5W 100 ML IV SCH ×3 (04:06→22:12)
[2023-03-26] MEDS: FLUCONAZOLE IN NS,PREMIX 400 MG in PREMIX 1 EA IV SCH ×6 (05:46→20:33)
[2023-03-26 06:45] LABS: BASOPHILS % (AUTO) 0.3 % (0.0-2.0); EOSINOPHILS % (AUTO) 0.4 % (0.0-6.0); HEMATOCRIT 28 % (39-51); HEMOGLOBIN 9.6 g/dL (13.5-17.5); LYMPHOCYTES % (AUTO) 43.8 % (20.0-44.0); MEAN CORPUSCULAR HEMOGLOBIN 27 PG (26.0-33.0); MEAN CORPUSCULAR HGB CONC 34 g/dl (31.0-36.0); MEAN CORPUSCULAR VOLUME 80 fL (80-96); MONOCYTES # (AUTO) 0.2 K/uL (0.1-1.30); MONOCYTES % (AUTO) 6.7 % (2.0-12.0); NEUTROPHILS # (AUTO) 1.2 K/uL (1.8-8.9); NEUTROPHILS % (AUTO) 48.8 % (43.0-81.0); PLATELET COUNT (AUTO) 126 K/uL (150-450); RED BLOOD CELL COUNT(AUTO) 3.54 MIL/uL (4.5-6.0); WHITE BLOOD COUNT (AUTO) 2.4 K/uL (4.3-11.0)
[2023-03-26 07:26] LABS: CALCIUM, SERUM 8.6 mg/dL (8.5-10.1); CREATININE 1.1 mg/dL (0.6-1.3); POTASSIUM 3.9 mmol/L (3.5-5.1)
[2023-03-26 08:00] VITALS: BP 152/100; TEMP 99; O2SAT 99
[2023-03-26] MEDS: ZINC SULFATE 220 MG CAPSULE PO SCH (08:20)
[2023-03-26] MEDS: MULTIVITAMINS,THERAGRAN 1 UDTAB TABLET PO SCH (08:20)
[2023-03-26] MEDS: PANTOPRAZOLE 40 MG TABLET.DR PO SCH (08:20)
[2023-03-26] MEDS: METOPROLOL TARTRATE 50 MG TABLET PO SCH ×2 (08:22→20:45)
[2023-03-26] MEDS: dexAMETHasone 1 MG/ML UDC PO SCH ×3 (08:40→16:25)
[2023-03-26] MEDS: LEVETIRACETAM (500MG) 500 MG in IV NS 0.9% 100 ML IV SCH ×2 (08:41→20:33)
[2023-03-26] MEDS: SULFAMETHOXAZOLE/TRIMETHOPRIM 25 ML in IV D5W 500 ML IV SCH ×2 (09:30→22:30)
[2023-03-26] MEDS: IV D5/0.45 NACL 1,000 ML IV PRN (15:35)
[2023-03-26 16:00] VITALS: BP 129/88; TEMP 98.7; O2SAT 99
[2023-03-26 19:06] LABS: *HIV-1 log10 RNA 5.322 (.)
[2023-03-26] MEDS: OLANZAPINE 5 MG TABLET PO SCH (22:12)
[2023-03-27] VITALS: BP 123/91; TEMP 98.7; O2SAT 99
[2023-03-27] MEDS: ACYCLOVIR IV 500 MG in IV D5W 100 ML IV SCH ×3 (04:44→21:17)
[2023-03-27] MEDS: MEROPENEM 500 MG in IV NS 0.9% 50 ML IV SCH ×3 (05:39→20:38)
[2023-03-27] MEDS: FLUCONAZOLE IN NS,PREMIX 400 MG in PREMIX 1 EA IV SCH ×2 (05:57)
[2023-03-27 08:00] VITALS: BP 122/95; TEMP 97.5; O2SAT 97
[2023-03-27] MEDS: SULFAMETHOXAZOLE/TRIMETHOPRIM 25 ML in IV D5W 500 ML IV SCH ×2 (08:29→22:37)
[2023-03-27] MEDS: dexAMETHasone 1 MG/ML UDC PO SCH ×3 (08:49→18:02)
[2023-03-27] MEDS: ZINC SULFATE 220 MG CAPSULE PO SCH (08:49)
[2023-03-27] MEDS: PANTOPRAZOLE 40 MG TABLET.DR PO SCH (08:49)
[2023-03-27] MEDS: LEVETIRACETAM (250 MG) 250 MG TABLET PO SCH ×2 (08:49→21:03)
[2023-03-27] MEDS: MULTIVITAMINS,THERAGRAN 1 UDTAB TABLET PO SCH (08:49)
[2023-03-27] MEDS: METOPROLOL TARTRATE 50 MG TABLET PO SCH ×2 (08:50→21:03)
[2023-03-27] MEDS: FLUCONAZOLE (100 MG) 100 MG TABLET PO SCH ×2 (12:19→21:03)
[2023-03-27] MEDS: IV D5/0.45 NACL 1,000 ML IV PRN (12:55)
[2023-03-27 16:00] VITALS: BP 129/92; TEMP 98.1; O2SAT 98
[2023-03-27] MEDS: OLANZAPINE 5 MG TABLET PO SCH (21:03)
[2023-03-28] VITALS: BP 136/98; TEMP 97.7; O2SAT 100
[2023-03-28] MEDS: IV D5/0.45 NACL 1,000 ML IV PRN ×2 (02:35→16:35)
[2023-03-28] MEDS: MEROPENEM 500 MG in IV NS 0.9% 50 ML IV SCH ×3 (04:05→20:00)
[2023-03-28] MEDS: ACYCLOVIR IV 500 MG in IV D5W 100 ML IV SCH ×3 (04:45→20:31)
[2023-03-28] MEDS: FLUCONAZOLE (100 MG) 100 MG TABLET PO SCH ×3 (06:36→20:12)
[2023-03-28 08:00] VITALS: BP 127/98; TEMP 97.7; O2SAT 100
[2023-03-28] MEDS: ZINC SULFATE 220 MG CAPSULE PO SCH (08:36)
[2023-03-28] MEDS: MULTIVITAMINS,THERAGRAN 1 UDTAB TABLET PO SCH (08:36)
[2023-03-28] MEDS: dexAMETHasone 1 MG/ML UDC PO SCH ×3 (08:36→18:00)
[2023-03-28] MEDS: LEVETIRACETAM (250 MG) 250 MG TABLET PO SCH ×2 (08:36→20:13)
[2023-03-28] MEDS: METOPROLOL TARTRATE 50 MG TABLET PO SCH ×2 (08:37→20:14)
[2023-03-28] MEDS: PANTOPRAZOLE 40 MG TABLET.DR PO SCH (08:39)
[2023-03-28] MEDS: SULFAMETHOXAZOLE/TRIMETHOPRIM 25 ML in IV D5W 500 ML IV SCH ×2 (09:43→21:39)
[2023-03-28 16:00] VITALS: BP 134/93; TEMP 98.2; O2SAT 99
[2023-03-28 20:00] VITALS: BP 134/93; TEMP 97.3; O2SAT 100
[2023-03-28] MEDS: LAMIVUDINE/ZIDOVUDINE 150-300 1 TAB TABLET PO SCH (20:13)
[2023-03-28] MEDS: OLANZAPINE 5 MG TABLET PO SCH (21:02)
[2023-03-29 04:00] VITALS: BP 132/93; TEMP 97.5; O2SAT 97
[2023-03-29] MEDS: MEROPENEM 500 MG in IV NS 0.9% 50 ML IV SCH ×3 (04:00→21:35)
[2023-03-29] MEDS: ACYCLOVIR IV 500 MG in IV D5W 100 ML IV SCH ×2 (04:31→12:39)
[2023-03-29] MEDS: FLUCONAZOLE (100 MG) 100 MG TABLET PO SCH ×3 (04:31→20:47)
[2023-03-29 08:00] VITALS: BP 122/82; TEMP 98.4; O2SAT 99
[2023-03-29] MEDS: ZINC SULFATE 220 MG CAPSULE PO SCH (08:42)
[2023-03-29] MEDS: dexAMETHasone 1 MG/ML UDC PO SCH ×2 (08:42→16:29)
[2023-03-29] MEDS: MULTIVITAMINS,THERAGRAN 1 UDTAB TABLET PO SCH (08:42)
[2023-03-29] MEDS: LEVETIRACETAM (250 MG) 250 MG TABLET PO SCH ×2 (08:42→20:49)
[2023-03-29] MEDS: METOPROLOL TARTRATE 50 MG TABLET PO SCH ×2 (08:43→21:35)
[2023-03-29] MEDS: SULFAMETHOXAZOLE/TRIMETHOPRIM 25 ML in IV D5W 500 ML IV SCH ×2 (08:44→21:03)
[2023-03-29] MEDS: EFAVIRENZ 600 MG TABLET PO SCH (08:47)
[2023-03-29] MEDS: PANTOPRAZOLE 40 MG TABLET.DR PO SCH (08:47)
[2023-03-29] MEDS: LAMIVUDINE/ZIDOVUDINE 150-300 1 TAB TABLET PO SCH ×2 (08:49→21:08)
[2023-03-29] MEDS: IV D5/0.45 NACL 1,000 ML IV PRN (12:14)
[2023-03-29 16:00] VITALS: BP 139/99; TEMP 98.5; O2SAT 100
[2023-03-29] MEDS: ACYCLOVIR 200 MG CAPSULE PO SCH (16:29)
[2023-03-29 20:00] VITALS: BP 147/102; TEMP 97.7; O2SAT 98
[2023-03-29] MEDS: AZITHROMYCIN 250 MG TABLET PO SCH (21:02)
[2023-03-29] MEDS: OLANZAPINE 5 MG TABLET PO SCH (21:37)
[2023-03-30 04:00] VITALS: BP 148/102; TEMP 97.7; O2SAT 98
[2023-03-30] MEDS: MEROPENEM 500 MG in IV NS 0.9% 50 ML IV SCH ×3 (05:42→22:41)
[2023-03-30] MEDS: FLUCONAZOLE (100 MG) 100 MG TABLET PO SCH ×3 (05:42→21:53)
[2023-03-30] MEDS: IV D5/0.45 NACL 1,000 ML IV PRN (06:26)
[2023-03-30 06:57] LABS: BASOPHILS % (AUTO) 0.1 % (0.0-2.0); HEMATOCRIT 29 % (39-51); HEMOGLOBIN 9.9 g/dL (13.5-17.5); LYMPHOCYTES # (AUTO) 0.9 K/uL (0.8-4.8); LYMPHOCYTES % (AUTO) 12.7 % (20.0-44.0); MEAN CORPUSCULAR HEMOGLOBIN 27 PG (26.0-33.0); MEAN CORPUSCULAR HGB CONC 34 g/dl (31.0-36.0); MEAN CORPUSCULAR VOLUME 80 fL (80-96); MONOCYTES # (AUTO) 0.3 K/uL (0.1-1.30); NEUTROPHILS # (AUTO) 6.2 K/uL (1.8-8.9); NEUTROPHILS % (AUTO) 83.2 % (43.0-81.0); PLATELET COUNT (AUTO) 239 K/uL (150-450); RED BLOOD CELL COUNT(AUTO) 3.68 MIL/uL (4.5-6.0); RED CELL DISTRIBUTION WIDTH 16.2 % (11.5-15.0); WHITE BLOOD COUNT (AUTO) 7.4 K/uL (4.3-11.0)
[2023-03-30 07:00] VITALS: BP 146/98; TEMP 97.3; O2SAT 98
[2023-03-30 07:16] LABS: CREATININE 1.2 mg/dL (0.6-1.3); POTASSIUM 3.3 mmol/L (3.5-5.1)
[2023-03-30] MEDS: PANTOPRAZOLE 40 MG TABLET.DR PO SCH (07:30)
[2023-03-30 08:00] VITALS: BP 146/98; TEMP 97.3; O2SAT 98
[2023-03-30] MEDS ORDERED: POTASSIUM CHLORIDE 20 MEQ TAB.PRT.SR PO ONE (09:00)
[2023-03-30] MEDS: ZINC SULFATE 220 MG CAPSULE PO SCH (10:15)
[2023-03-30] MEDS: MULTIVITAMINS,THERAGRAN 1 UDTAB TABLET PO SCH (10:15)
[2023-03-30] MEDS: LEVETIRACETAM (250 MG) 250 MG TABLET PO SCH ×2 (10:16→20:44)
[2023-03-30] MEDS: SULFAMETHOXAZOLE/TRIMETHOPRIM 25 ML in IV D5W 500 ML IV SCH ×2 (10:19→20:45)
[2023-03-30] MEDS: METOPROLOL TARTRATE 50 MG TABLET PO SCH ×2 (10:23→20:44)
[2023-03-30] MEDS: EFAVIRENZ 600 MG TABLET PO SCH (10:27)
[2023-03-30] MEDS: ACYCLOVIR 200 MG CAPSULE PO SCH ×2 (10:28→16:16)
[2023-03-30] MEDS: LAMIVUDINE/ZIDOVUDINE 150-300 1 TAB TABLET PO SCH ×2 (10:28→21:53)
[2023-03-30] MEDS: dexAMETHasone 1 MG/ML UDC PO SCH ×2 (10:55→16:16)
[2023-03-30 16:00] VITALS: BP_SYST 150; BP_DIAS 107; BP_DIAS 98; TEMP 97.5; O2SAT 100; O2SAT 98
[2023-03-30 20:00] VITALS: BP 160/100; TEMP 98.2; O2SAT 98
[2023-03-30 20:45] VITALS: BP 160/100; TEMP 98.2; O2SAT 100
[2023-03-30] MEDS: OLANZAPINE 5 MG TABLET PO SCH (21:53)
[2023-03-31 04:00] VITALS: BP 130/90; TEMP 98.2; O2SAT 98
[2023-03-31] MEDS: FLUCONAZOLE (100 MG) 100 MG TABLET PO SCH (05:23)
[2023-03-31] MEDS: MEROPENEM 500 MG in IV NS 0.9% 50 ML IV SCH (05:33)
[2023-03-31] MEDS ORDERED: AZIT250T PO (06:50)
[2023-03-31] MEDS ORDERED: Olanzapine PO (06:50)
[2023-03-31] MEDS ORDERED: METO50TA16 PO (06:50)
[2023-03-31] MEDS ORDERED: SULF10VI2 IV (06:50)
[2023-03-31] MEDS ORDERED: EFAV600T PO (06:50)
[2023-03-31] MEDS ORDERED: LAMI1TAB PO (06:50)
[2023-03-31] MEDS ORDERED: ACYC200C31 PO (06:50)
[2023-03-31] MEDS ORDERED: LEVE250T2 PO (06:50)
[2023-03-31] MEDS ORDERED: DEXA1TAB2 PO (06:55)
[2023-03-31] MEDS ORDERED: DEXA0.5T15 PO ×2 (06:55)
[2023-03-31 08:00] VITALS: BP 130/62; TEMP 97.3; O2SAT 98
[2023-03-31] MEDS: dexAMETHasone 1 MG/ML UDC PO SCH (08:30)
[2023-03-31] MEDS: LAMIVUDINE/ZIDOVUDINE 150-300 1 TAB TABLET PO SCH (08:30)
[2023-03-31] MEDS: EFAVIRENZ 600 MG TABLET PO SCH (08:30)
[2023-03-31] MEDS: PANTOPRAZOLE 40 MG TABLET.DR PO SCH (08:31)
[2023-03-31] MEDS: ZINC SULFATE 220 MG CAPSULE PO SCH (08:31)
[2023-03-31] MEDS: SULFAMETHOXAZOLE/TRIMETHOPRIM 25 ML in IV D5W 500 ML IV SCH (08:31)
[2023-03-31] MEDS: MULTIVITAMINS,THERAGRAN 1 UDTAB TABLET PO SCH (08:31)
[2023-03-31 08:32] VITALS: BP 130/62
[2023-03-31] MEDS: METOPROLOL TARTRATE 50 MG TABLET PO SCH (08:32)
[2023-03-31] MEDS: LEVETIRACETAM (250 MG) 250 MG TABLET PO SCH (08:32)
[2023-03-31] MEDS: ACYCLOVIR 200 MG CAPSULE PO SCH (08:32)
[2023-03-31 10:29] LABS: CALCIUM, SERUM 8.2 mg/dL (8.5-10.1); CREATININE 1.2 mg/dL (0.6-1.3); POTASSIUM 3.7 mmol/L (3.5-5.1)
[2023-03-31 11:20] LABS: BASOPHILS % (AUTO) 0.2 % (0.0-2.0); HEMATOCRIT 32 % (39-51); HEMOGLOBIN 10.7 g/dL (13.5-17.5); LYMPHOCYTES # (AUTO) 1.3 K/uL (0.8-4.8); LYMPHOCYTES % (AUTO) 19.7 % (20.0-44.0); MEAN CORPUSCULAR HEMOGLOBIN 28 PG (26.0-33.0); MEAN CORPUSCULAR HGB CONC 33 g/dl (31.0-36.0); MEAN CORPUSCULAR VOLUME 83 fL (80-96); MONOCYTES # (AUTO) 0.4 K/uL (0.1-1.30); MONOCYTES % (AUTO) 6.3 % (2.0-12.0); NEUTROPHILS # (AUTO) 4.7 K/uL (1.8-8.9); NEUTROPHILS % (AUTO) 73.8 % (43.0-81.0); PLATELET COUNT (AUTO) 271 K/uL (150-450); RED CELL DISTRIBUTION WIDTH 16.7 % (11.5-15.0); WHITE BLOOD COUNT (AUTO) 6.4 K/uL (4.3-11.0)
[2023-03-31] MEDS ORDERED: dexAMETHasone 1 MG/ML UDC PO SCH (17:00)
[2023-04-02] MEDS ORDERED: dexAMETHasone 1 MG/ML UDC PO SCH (09:00)
[2023-04-04] MEDS ORDERED: dexAMETHasone 1 MG/ML UDC PO SCH (09:00)
== END 2023-03-31 14:40 | DRG 890 ==
LOC: ER 07:19 → MEDSG1 10:44 → TELE1 03-23 13:13 → MEDSG1 03-24 10:14
PROVIDERS: ADMIT Nurse Practitioner Acute Care; ATTEND Nurse Practitioner Family
PROC: 05HC33Z Insertion of Infusion Device into Left Basilic Vein, Percutaneous Approach (ICD-10-PCS; principal; 2023-03-23)
PROC: 05HB33Z Insertion of Infusion Device into Right Basilic Vein, Percutaneous Approach (ICD-10-PCS; 2023-03-25)
DX: B20 Human immunodeficiency virus [HIV] disease (principal); G92.9 Unspecified toxic encephalopathy; B58.9 Toxoplasmosis, unspecified; G93.6 Cerebral edema; G04.90 Encephalitis and encephalomyelitis, unspecified; G40.909 Epilepsy, unspecified, not intractable, without status epilepticus; E87.6 Hypokalemia; Z20.822 Contact with and (suspected) exposure to COVID-19; Z91.148 Patient's other noncompliance with medication regimen for other reason; F17.200 Nicotine dependence, unspecified, uncomplicated; Z79.899 Other long term (current) drug therapy; Z86.61 Personal history of infections of the central nervous system; R29.810 Facial weakness; I10 Essential (primary) hypertension; G93.89 Other specified disorders of brain; F19.159 Other psychoactive substance abuse with psychoactive substance-induced psychotic disorder, unspecified; Z98.890 Other specified postprocedural states; F19.11 Other psychoactive substance abuse, in remission; N39.0 Urinary tract infection, site not specified; B96.4 Proteus (mirabilis) (morganii) as the cause of diseases classified elsewhere
CPT/HCPCS: 36410; 36415; 70450-TC; 70553-TC; 71045-TC; 80048-TC; 80076-TC; 82962-TC; 83735-TC; 84100-TC; 84484-TC; 85025-TC; 86360; 87040-TC; 87086-TC; 87536; 87899; 92507-TC; 92521; 92526; 92611-TC; 97110-TC; 97112-TC; 97116-TC; 97530-TC; A4216; A4223; A9575; G0378; J0133; J1200; J1450; J1953; J2185; J2765; J3480; J3490; J7030; J7040; J7050; J7060; J8540